=== PATIENT | male | born 1970 | race Caucasian/White ===

== ENCOUNTER 2020-03-22 05:00 | Emergency (ER) | payer MEDICARE, OTHER ==
[~2020-03-22] VITALS: Ht 198.1 cm; Wt 127.0 kg
[2020-03-22] MEDS ORDERED: AMLO5 PO (06:03)
[2020-03-22] MEDS ORDERED: Crestor20 MG PO (06:03)
[2020-03-22] MEDS ORDERED: PANT40 PO (06:03)
[2020-03-22] MEDS ORDERED: TICA90TA PO (06:04)
[2020-03-22] MEDS ORDERED: SITA100T2 PO (06:04)
[2020-03-22] MEDS ORDERED: Percocet 5-3251 EACH PO (06:07)
[2020-03-22] MEDS ORDERED: BASAGLAR K100 UNIT/1 SC (06:08)
[2020-03-22] MEDS ORDERED: Humalog100 UNIT/1 (06:09)
[2020-03-22] MEDS ORDERED: OZEMPIC0.25 MG/0. SC (06:09)
[2020-03-22] MEDS ORDERED: LOW DOSE ASPIRI81 M1 PO (06:10)
[2020-03-22] MEDS ORDERED: ZOLP5 PO (06:10)
[2020-03-22] MEDS ORDERED: CITA20 PO (06:11)
[2020-03-22] MEDS ORDERED: Cymbalta20 MG PT (12:06)
[2020-03-22] MEDS ORDERED: OXYC1TAB11 PO (12:06)
[2020-03-22] MEDS ORDERED: GABA100 PO (12:06)
== END 2020-03-22 12:19 | disposition home or self-care (01) ==
LOC: ER 05:00
DX: G89.29 Other chronic pain (principal); F32.9 Major depressive disorder, single episode, unspecified; F41.9 Anxiety disorder, unspecified; Z79.899 Other long term (current) drug therapy
CPT/HCPCS: 82947; 99284; Q3014

== ENCOUNTER 2020-04-04 01:23 | Emergency (ER) | payer MEDICARE, OTHER ==
[~2020-04-04] VITALS: Ht 198.1 cm; Wt 131.1 kg
[~2020-04-04 01:23] MED LIST: AMLO5 PO; BASAGLAR K100 UNIT/1 SC; CITA20 PO; Crestor20 MG PO; Cymbalta20 MG PT; GABA100 PO; Humalog100 UNIT/1; LOW DOSE ASPIRI81 M1 PO; OXYC1TAB11 PO; OZEMPIC0.25 MG/0. SC; PANT40 PO; Percocet 5-3251 EACH PO; SITA100T2 PO; TICA90TA PO; ZOLP5 PO
[2020-04-04] MEDS ORDERED: IBUP800 PO (02:58)
[2020-04-04] MEDS ORDERED: Valium5 MG PO (02:58)
== END 2020-04-04 03:04 | disposition home or self-care (01) ==
LOC: ER 01:23
DX: M62.830 Muscle spasm of back (principal); Z79.4 Long term (current) use of insulin; Z79.82 Long term (current) use of aspirin; Z79.899 Other long term (current) drug therapy; F32.9 Major depressive disorder, single episode, unspecified
CPT/HCPCS: J1885; J3360

== ENCOUNTER → 2020-06-02 | Outpatient (CLI) | payer MEDICARE, OTHER ==
[~2020-06-02] MED LIST changes: +IBUP800 PO; +Valium5 MG PO
== END | disposition home or self-care (01) ==
LOC: LAB 17:23 → LAB SHORT 17:23
DX: E11.621 Type 2 diabetes mellitus with foot ulcer (principal); L97.509 Non-pressure chronic ulcer of other part of unspecified foot with unspecified severity; E11.69 Type 2 diabetes mellitus with other specified complication; M86.179 Other acute osteomyelitis, unspecified ankle and foot
CPT/HCPCS: 87070; 87075; 87077; 87147; 87186; 87205

== ENCOUNTER 2020-07-04 20:42 | Emergency (ER) | payer MEDICARE, OTHER ==
[~2020-07-04] VITALS: Ht 198.1 cm; Wt 129.3 kg
[2020-07-04 21:34] LABS: BASOPHILS ABSOLUTE AUTO 0.03 K/mm3 (0.00-0.23); BASOPHILS PERCENT AUTO 0 % (0-2); EOSINOPHILS ABSOLUTE AUTO 0.05 K/mm3 (0.00-0.68); EOSINOPHILS PERCENT AUTO 1 % (0-6); Hematocrit 38.2 % (37.0-53.0); Hemoglobin 12.4 g/dL (13.5-17.5); IMMATURE GRAN ABSOLUTE AUTO 0.02 K/mm3 (0.00-0.10); IMMATURE GRAN PERCENT AUTO 0 % (0-1); LYMPHOCYTES ABSOLUTE AUTO 1.02 K/mm3 (0.84-5.20); LYMPHOCYTES PERCENT AUTO 10 % (21-46); MONOCYTES ABSOLUTE AUTO 0.93 K/mm3 (0.16-1.47); MONOCYTES PERCENT AUTO 9 % (4-13); Mean Corpuscular HGB 26.2 pg (26.0-34.0); Mean Corpuscular HGB Conc 32.5 g/dL (31.5-36.5); Mean Corpuscular Volume 81 fL (80-100); Mean Platelet Volume 11.3 fL (9.1-12.4); NEUTROPHILS ABSOLUTE AUTO 8.48 K/mm3 (1.96-9.15); NEUTROPHILS PERCENT AUTO 81 % (41-73); Platelet Count 162 K/mm3 (150-400); RDW Coefficient Variation 14.6 % (11.7-14.2); Red Blood Cell Count 4.73 M/mm3 (4.30-5.90); White Blood Cell Count 10.53 K/mm3 (4.00-11.30)
[2020-07-04 21:53] LABS: Alanine Aminotransfer (ALT/SGP 22 U/L (12-78); Albumin, Blood 3.5 g/dL (3.4-5.0); Albumin/Globulin Ratio 0.9 (0.8-1.8); Alk Phos 109 U/L (50-136); Anion Gap 8 mmol/L (6-16); Aspartate Aminotrans (AST/SGOT 16 U/L (12-37); Bilirubin, Total 0.4 mg/dL (0.1-1.0); Blood Urea Nitrogen 18 mg/dL (8-24); Bun/Creatinine Ratio 14.5 (12.0-20.0); CO2, Blood 26 mmol/L (21-32); Calcium, Blood 9.1 mg/dL (8.5-10.1); Chloride, Blood 96 mmol/L (98-108); Creatinine, Blood 1.24 mg/dL (0.60-1.20); Glomerular Filtration Rate >60 (60-); Glucose, Blood 366 mg/dL (70-99); Potassium, Blood 3.7 mmol/L (3.5-5.5); Sodium, Blood 130 mmol/L (136-145); Total Protein, Blood 7.5 g/dL (6.4-8.2)
[2020-07-04] MEDS ORDERED: CEPH500 PO (22:02)
[2020-07-04] MEDS ORDERED: Bactrim Ds Tab1 EACH PO (22:02)
== END 2020-07-04 22:36 | disposition home or self-care (01) ==
LOC: ER 20:42
PROVIDERS: Emergency Medicine
DX: E11.621 Type 2 diabetes mellitus with foot ulcer (principal); L97.429 Non-pressure chronic ulcer of left heel and midfoot with unspecified severity; L03.031 Cellulitis of right toe; E11.40 Type 2 diabetes mellitus with diabetic neuropathy, unspecified; F32.9 Major depressive disorder, single episode, unspecified; L03.116 Cellulitis of left lower limb; Z79.4 Long term (current) use of insulin; Z79.899 Other long term (current) drug therapy; Z79.82 Long term (current) use of aspirin
CPT/HCPCS: 36415; 73630; 80053; 83605; 85025; 85651; 86140; 93005; 93010; 99283-25; A9270-GY

== ENCOUNTER 2020-08-01 09:12 | Emergency (ER) | payer MEDICARE, OTHER ==
[~2020-08-01] VITALS: Ht 198.1 cm; Wt 127.0 kg
[~2020-08-01 09:12] MED LIST changes: -SULTRIDS PO
[2020-08-01 11:01] LABS: BASOPHILS ABSOLUTE AUTO 0.04 K/mm3 (0.00-0.23); BASOPHILS PERCENT AUTO 0 % (0-2); EOSINOPHILS PERCENT AUTO 3 % (0-6); Hematocrit 37.4 % (37.0-53.0); Hemoglobin 12.2 g/dL (13.5-17.5); IMMATURE GRAN ABSOLUTE AUTO 0.04 K/mm3 (0.00-0.10); IMMATURE GRAN PERCENT AUTO 0 % (0-1); LYMPHOCYTES ABSOLUTE AUTO 1.56 K/mm3 (0.84-5.20); LYMPHOCYTES PERCENT AUTO 16 % (21-46); MONOCYTES ABSOLUTE AUTO 0.62 K/mm3 (0.16-1.47); MONOCYTES PERCENT AUTO 7 % (4-13); Mean Corpuscular HGB 26.3 pg (26.0-34.0); Mean Corpuscular HGB Conc 32.6 g/dL (31.5-36.5); Mean Corpuscular Volume 81 fL (80-100); Mean Platelet Volume 11.4 fL (9.1-12.4); NEUTROPHILS ABSOLUTE AUTO 7.04 K/mm3 (1.96-9.15); NEUTROPHILS PERCENT AUTO 73 % (41-73); Platelet Count 163 K/mm3 (150-400); RDW Coefficient Variation 13.8 % (11.7-14.2); RDW Standard Deviation 40.6 fL (35.1-46.3); Red Blood Cell Count 4.64 M/mm3 (4.30-5.90)
[2020-08-01 11:20] LABS: Alanine Aminotransfer (ALT/SGP 39 U/L (12-78); Albumin, Blood 3.4 g/dL (3.4-5.0); Albumin/Globulin Ratio 0.8 (0.8-1.8); Alk Phos 108 U/L (50-136); Anion Gap 7 mmol/L (6-16); Aspartate Aminotrans (AST/SGOT 28 U/L (12-37); Bilirubin, Total 0.4 mg/dL (0.1-1.0); Blood Urea Nitrogen 15 mg/dL (8-24); Bun/Creatinine Ratio 13.8 (12.0-20.0); CO2, Blood 27 mmol/L (21-32); Calcium, Blood 9.5 mg/dL (8.5-10.1); Chloride, Blood 103 mmol/L (98-108); Creatinine, Blood 1.09 mg/dL (0.60-1.20); Glomerular Filtration Rate >60 (60-); Glucose, Blood 188 mg/dL (70-99); Potassium, Blood 3.2 mmol/L (3.5-5.5); Sodium, Blood 137 mmol/L (136-145); Total Protein, Blood 7.4 g/dL (6.4-8.2)
[2020-08-01] MEDS ORDERED: CEPH500 PO (11:52)
[2020-08-01] MEDS ORDERED: SULTRIDS PO (11:52)
== END 2020-08-01 12:12 | disposition home or self-care (01) ==
LOC: ER 09:12
PROVIDERS: Emergency Medicine
DX: E11.621 Type 2 diabetes mellitus with foot ulcer (principal); L97.429 Non-pressure chronic ulcer of left heel and midfoot with unspecified severity; E11.622 Type 2 diabetes mellitus with other skin ulcer; L97.329 Non-pressure chronic ulcer of left ankle with unspecified severity; I25.2 Old myocardial infarction; F32.9 Major depressive disorder, single episode, unspecified; Z79.899 Other long term (current) drug therapy
CPT/HCPCS: 73630; 80053; 85025; 85651; 86140; 99283-25

== ENCOUNTER → 2020-08-01 | Outpatient (CLI) | payer MEDICARE, OTHER ==
[~2020-08-01] MED LIST changes: +Bactrim Ds Tab1 EACH PO; +CEPH500 PO; +SULTRIDS PO
== END | disposition home or self-care (01) ==
LOC: LAB SHORT 12:32 → LAB 12:32
DX: L97.422 Non-pressure chronic ulcer of left heel and midfoot with fat layer exposed (principal); L97.509 Non-pressure chronic ulcer of other part of unspecified foot with unspecified severity; L03.119 Cellulitis of unspecified part of limb; E08.43 Diabetes mellitus due to underlying condition with diabetic autonomic (poly)neuropathy; A42.1 Abdominal actinomycosis
CPT/HCPCS: 87015; 87116; 87206

== ENCOUNTER 2020-08-13 18:17 | Emergency (ER) | payer MEDICARE, OTHER ==
[~2020-08-13] VITALS: Ht 198.1 cm; Wt 127.9 kg
[~2020-08-13 18:17] MED LIST changes: +SULTRIDS PO
== END 2020-08-13 20:25 | disposition home or self-care (01) ==
LOC: ER 18:17
DX: F32.9 Major depressive disorder, single episode, unspecified (principal); E11.9 Type 2 diabetes mellitus without complications; I25.2 Old myocardial infarction; Z79.899 Other long term (current) drug therapy; Z88.8 Allergy status to other drugs, medicaments and biological substances; Z79.4 Long term (current) use of insulin; Z79.82 Long term (current) use of aspirin
CPT/HCPCS: 99284

== ENCOUNTER 2020-08-25 00:57 | Day surgery (SDC) | payer MEDICARE, OTHER | END 2020-08-25 23:43 | disposition home or self-care (01) | LOC: WOUND 00:57 | DX: E11.621 Type 2 diabetes mellitus with foot ulcer (principal); E11.42 Type 2 diabetes mellitus with diabetic polyneuropathy; E11.610 Type 2 diabetes mellitus with diabetic neuropathic arthropathy; L97.422 Non-pressure chronic ulcer of left heel and midfoot with fat layer exposed; L97.509 Non-pressure chronic ulcer of other part of unspecified foot with unspecified severity; I10 Essential (primary) hypertension; K21.9 Gastro-esophageal reflux disease without esophagitis; Z79.899 Other long term (current) drug therapy; Z88.8 Allergy status to other drugs, medicaments and biological substances; Z79.4 Long term (current) use of insulin; Z79.82 Long term (current) use of aspirin | CPT/HCPCS: G0463 ==

== ENCOUNTER 2020-09-01 00:31 | Day surgery (SDC) | payer MEDICARE, OTHER | END 2020-09-01 23:13 | disposition home or self-care (01) | LOC: WOUND 00:31 | DX: E11.621 Type 2 diabetes mellitus with foot ulcer (principal); E11.42 Type 2 diabetes mellitus with diabetic polyneuropathy; E11.610 Type 2 diabetes mellitus with diabetic neuropathic arthropathy; L97.422 Non-pressure chronic ulcer of left heel and midfoot with fat layer exposed; L97.509 Non-pressure chronic ulcer of other part of unspecified foot with unspecified severity; E11.59 Type 2 diabetes mellitus with other circulatory complications; I10 Essential (primary) hypertension; K21.9 Gastro-esophageal reflux disease without esophagitis; Z79.899 Other long term (current) drug therapy; Z79.4 Long term (current) use of insulin ==

== ENCOUNTER 2020-09-08 01:15 | Day surgery (SDC) | payer MEDICARE, OTHER | END 2020-09-08 23:06 | disposition home or self-care (01) | LOC: WOUND 01:15 | DX: E11.621 Type 2 diabetes mellitus with foot ulcer (principal); E11.42 Type 2 diabetes mellitus with diabetic polyneuropathy; E11.610 Type 2 diabetes mellitus with diabetic neuropathic arthropathy; L97.422 Non-pressure chronic ulcer of left heel and midfoot with fat layer exposed; L97.521 Non-pressure chronic ulcer of other part of left foot limited to breakdown of skin; E11.59 Type 2 diabetes mellitus with other circulatory complications; I10 Essential (primary) hypertension; Z79.4 Long term (current) use of insulin; Z79.899 Other long term (current) drug therapy ==

== ENCOUNTER 2020-09-22 01:30 | Day surgery (SDC) | payer MEDICARE, OTHER | END 2020-09-22 22:43 | disposition home or self-care (01) | LOC: WOUND 01:30 | DX: E11.621 Type 2 diabetes mellitus with foot ulcer (principal); E11.42 Type 2 diabetes mellitus with diabetic polyneuropathy; E11.610 Type 2 diabetes mellitus with diabetic neuropathic arthropathy; L97.422 Non-pressure chronic ulcer of left heel and midfoot with fat layer exposed; L97.521 Non-pressure chronic ulcer of other part of left foot limited to breakdown of skin; E11.59 Type 2 diabetes mellitus with other circulatory complications; I10 Essential (primary) hypertension; Z79.899 Other long term (current) drug therapy; Z79.4 Long term (current) use of insulin ==

== ENCOUNTER 2020-09-29 00:30 | Day surgery (SDC) | payer MEDICARE, OTHER | END 2020-09-29 22:50 | disposition home or self-care (01) | LOC: WOUND 00:30 | DX: E11.621 Type 2 diabetes mellitus with foot ulcer (principal); E11.42 Type 2 diabetes mellitus with diabetic polyneuropathy; E11.610 Type 2 diabetes mellitus with diabetic neuropathic arthropathy; L97.422 Non-pressure chronic ulcer of left heel and midfoot with fat layer exposed; L97.521 Non-pressure chronic ulcer of other part of left foot limited to breakdown of skin; E11.59 Type 2 diabetes mellitus with other circulatory complications; I10 Essential (primary) hypertension; Z79.899 Other long term (current) drug therapy; Z79.4 Long term (current) use of insulin; Z79.82 Long term (current) use of aspirin | CPT/HCPCS: G0463 ==

== ENCOUNTER 2020-10-13 00:20 | Day surgery (SDC) | payer MEDICARE, OTHER | END 2020-10-13 23:39 | disposition home or self-care (01) | LOC: WOUND 00:20 | DX: E11.621 Type 2 diabetes mellitus with foot ulcer (principal); E11.42 Type 2 diabetes mellitus with diabetic polyneuropathy; E11.610 Type 2 diabetes mellitus with diabetic neuropathic arthropathy; L97.422 Non-pressure chronic ulcer of left heel and midfoot with fat layer exposed; L97.521 Non-pressure chronic ulcer of other part of left foot limited to breakdown of skin; E11.59 Type 2 diabetes mellitus with other circulatory complications; I10 Essential (primary) hypertension; Z79.4 Long term (current) use of insulin; Z79.899 Other long term (current) drug therapy | CPT/HCPCS: G0463 ==

== ENCOUNTER 2021-01-15 15:50 | Emergency (ER) | payer MEDICARE, OTHER ==
[~2021-01-15] VITALS: Ht 198.1 cm; Wt 131.5 kg
[2021-01-15 16:29] LABS: BASOPHILS ABSOLUTE AUTO 0.04 K/mm3 (0.00-0.23); BASOPHILS PERCENT AUTO 0 % (0-2); EOSINOPHILS ABSOLUTE AUTO 0.51 K/mm3 (0.00-0.68); EOSINOPHILS PERCENT AUTO 5 % (0-6); Hematocrit 38.1 % (37.0-53.0); Hemoglobin 12.9 g/dL (13.5-17.5); IMMATURE GRAN ABSOLUTE AUTO 0.04 K/mm3 (0.00-0.10); IMMATURE GRAN PERCENT AUTO 0 % (0-1); LYMPHOCYTES ABSOLUTE AUTO 1.46 K/mm3 (0.84-5.20); LYMPHOCYTES PERCENT AUTO 13 % (21-46); MONOCYTES ABSOLUTE AUTO 0.61 K/mm3 (0.16-1.47); MONOCYTES PERCENT AUTO 6 % (4-13); Mean Corpuscular HGB 25.9 pg (26.0-34.0); Mean Corpuscular HGB Conc 33.9 g/dL (31.5-36.5); Mean Corpuscular Volume 76 fL (80-100); Mean Platelet Volume 11.7 fL (9.1-12.4); NEUTROPHILS ABSOLUTE AUTO 8.53 K/mm3 (1.96-9.15); NEUTROPHILS PERCENT AUTO 76 % (41-73); Platelet Count 161 K/mm3 (150-400); RDW Coefficient Variation 13.6 % (11.7-14.2); RDW Standard Deviation 37.8 fL (35.1-46.3); Red Blood Cell Count 4.99 M/mm3 (4.30-5.90); White Blood Cell Count 11.19 K/mm3 (4.00-11.30)
[2021-01-15 16:58] LABS: Alanine Aminotransfer (ALT/SGP 30 U/L (12-78); Albumin, Blood 3.3 g/dL (3.4-5.0); Albumin/Globulin Ratio 0.8 (0.8-1.8); Alk Phos 116 U/L (50-136); Anion Gap 7 mmol/L (6-16); Aspartate Aminotrans (AST/SGOT 28 U/L (12-37); Bilirubin, Total 0.5 mg/dL (0.1-1.0); Blood Urea Nitrogen 21 mg/dL (8-24); Bun/Creatinine Ratio 15.8 (12.0-20.0); CO2, Blood 25 mmol/L (21-32); Calcium, Blood 9.1 mg/dL (8.5-10.1); Chloride, Blood 99 mmol/L (98-108); Creatinine, Blood 1.33 mg/dL (0.60-1.20); Globulin, Blood 4.1 g/dL (2.2-4.0); Glomerular Filtration Rate >60 (60-); Glucose, Blood 411 mg/dL (70-99); Potassium, Blood 3.8 mmol/L (3.5-5.5); Sodium, Blood 131 mmol/L (136-145); Total Protein, Blood 7.4 g/dL (6.4-8.2); Troponin I <0.015 ng/mL (0.000-0.040)
[2021-01-15] MEDS ORDERED: METO25 PO (17:20)
[2021-01-15] MEDS ORDERED: HYDRA25 PO (17:20)
[2021-01-15] MEDS ORDERED: FISH OIL 1,2001 EAC1 PO (17:21)
[2021-01-15] MEDS ORDERED: CENTRUM SILVER1 EAC2 PO (17:22)
[2021-01-15] MEDS ORDERED: THERA-D2000 UNIT PO (17:22)
[2021-01-15] MEDS ORDERED: PANT20 PO (19:23)
[2021-01-15] MEDS ORDERED: METOPROLOL SUCC25 MG PO (19:23)
[2021-01-15] MEDS ORDERED: HYDCHL25 PO (19:24)
[2021-01-15] MEDS ORDERED: INSULIN LI100 UNIT/6 SC (19:24)
[2021-01-15] MEDS ORDERED: CYMBALTA20 M2 PO (19:24)
[2021-01-15] MEDS ORDERED: SITA100T2 PO (19:26)
[2021-01-15] MEDS ORDERED: OXYCODONE-ACET1 EAC2 PO (19:26)
[2021-01-15] MEDS ORDERED: LEVO750 PO ×2 (20:18→20:21)
[2021-02-26] MEDS ORDERED: Crestor20 MG PO (14:43)
[2021-02-26] MEDS ORDERED: Aspirin EC81 MG PO (14:43)
[2021-02-26] MEDS ORDERED: AMLO5 PO (14:43)
[2021-02-26] MEDS ORDERED: PANT40 PO (14:43)
[2021-02-26] MEDS ORDERED: TICA90TA PO (14:44)
[2021-02-26] MEDS ORDERED: METO25ER PO (14:44)
[2021-02-26] MEDS ORDERED: VITAMIN D325 MC3 PO (14:44)
[2021-02-26] MEDS ORDERED: SITA100T2 PO (14:44)
[2021-02-26] MEDS ORDERED: OMEGA-3 2100 S1 EACH PO (14:45)
[2021-02-26] MEDS ORDERED: BASAGLAR K100 UNIT/1 SC (14:45)
[2021-02-26] MEDS ORDERED: OZEMPIC0.25 MG/0. SC (14:46)
[2021-02-26] MEDS ORDERED: CITALOPRAM HBR10 MG PO (14:47)
[2021-02-26] MEDS ORDERED: HUMALOG KW100 UNIT/1 (14:47)
[2021-02-26] MEDS ORDERED: KETO15TC (14:48)
[2021-02-26] MEDS ORDERED: NARCAN4 M1 (14:48)
[2021-02-26] MEDS ORDERED: HYDCHL12.5 PO (14:48)
[2021-02-26] MEDS ORDERED: PERCOCET 10-321 EAC1 PO (14:48)
== END 2021-01-15 20:27 | disposition home or self-care (01) ==
LOC: ER 15:50
PROVIDERS: Emergency Medicine
DX: M86.9 Osteomyelitis, unspecified (principal); E11.9 Type 2 diabetes mellitus without complications; I25.2 Old myocardial infarction; Z88.8 Allergy status to other drugs, medicaments and biological substances; Z79.899 Other long term (current) drug therapy; Z79.82 Long term (current) use of aspirin
CPT/HCPCS: 36415; 71045; 73630; 80053; 83605; 84484; 85025; 85651; 86140; 87040; 87070; 87075; 87077; 87186; 87205; 93005; 93010; 96374; 99284-25; A9270; J2405

== ENCOUNTER → 2021-02-02 | Outpatient (CLI) | payer MEDICARE, OTHER ==
[~2021-02-02] MED LIST changes: +CENTRUM SILVER1 EAC2 PO; +CYMBALTA20 M2 PO; +FISH OIL 1,2001 EAC1 PO; +HYDCHL25 PO; +HYDRA25 PO; +INSULIN LI100 UNIT/6 SC; +LEVO750 PO; +METO25 PO; +METOPROLOL SUCC25 MG PO; +OXYCODONE-ACET1 EAC2 PO; +PANT20 PO; +THERA-D2000 UNIT PO
== END | disposition home or self-care (01) ==
LOC: LAB SHORT 07:52
DX: M86.9 Osteomyelitis, unspecified (principal); L03.032 Cellulitis of left toe
CPT/HCPCS: 88305; 88311

== ENCOUNTER 2021-02-28 13:34 | Emergency (ER) | payer MEDICARE, OTHER ==
[~2021-02-28] VITALS: Ht 198.1 cm; Wt 132.0 kg
[~2021-02-28 13:34] MED LIST changes: +Aspirin EC81 MG PO; +CITALOPRAM HBR10 MG PO; +HUMALOG KW100 UNIT/1; +HYDCHL12.5 PO; +KETO15TC; +METO25ER PO; +NARCAN4 M1; +OMEGA-3 2100 S1 EACH PO; +PERCOCET 10-321 EAC1 PO; +VITAMIN D325 MC3 PO
[2021-02-28 13:59] LABS: BASOPHILS ABSOLUTE AUTO 0.04 K/mm3 (0.00-0.23); BASOPHILS PERCENT AUTO 0 % (0-2); EOSINOPHILS ABSOLUTE AUTO 0.27 K/mm3 (0.00-0.68); EOSINOPHILS PERCENT AUTO 2 % (0-6); Hematocrit 38.2 % (37.0-53.0); Hemoglobin 12.8 g/dL (13.5-17.5); IMMATURE GRAN ABSOLUTE AUTO 0.04 K/mm3 (0.00-0.10); IMMATURE GRAN PERCENT AUTO 0 % (0-1); LYMPHOCYTES ABSOLUTE AUTO 1.05 K/mm3 (0.84-5.20); LYMPHOCYTES PERCENT AUTO 9 % (21-46); MONOCYTES ABSOLUTE AUTO 0.81 K/mm3 (0.16-1.47); MONOCYTES PERCENT AUTO 7 % (4-13); Mean Corpuscular HGB 25.7 pg (26.0-34.0); Mean Corpuscular HGB Conc 33.5 g/dL (31.5-36.5); Mean Corpuscular Volume 77 fL (80-100); Mean Platelet Volume 11.2 fL (9.1-12.4); NEUTROPHILS ABSOLUTE AUTO 9.77 K/mm3 (1.96-9.15); NEUTROPHILS PERCENT AUTO 82 % (41-73); Platelet Count 189 K/mm3 (150-400); RDW Coefficient Variation 13.4 % (11.7-14.2); RDW Standard Deviation 37.2 fL (35.1-46.3); Red Blood Cell Count 4.99 M/mm3 (4.30-5.90); White Blood Cell Count 11.98 K/mm3 (4.00-11.30)
[2021-02-28 14:19] LABS: Albumin/Globulin Ratio 0.6 (0.8-1.8); Bilirubin, Total 0.6 mg/dL (0.1-1.0); Bun/Creatinine Ratio 14.7 (12.0-20.0); Calcium, Blood 8.9 mg/dL (8.5-10.1); Creatinine, Blood 1.5 mg/dL (0.60-1.20); Globulin, Blood 4.7 g/dL (2.2-4.0); Potassium, Blood 3.7 mmol/L (3.5-5.5); Total Protein, Blood 7.7 g/dL (6.4-8.2)
[2021-02-28] MEDS ORDERED: AMOCLA875 PO (15:36)
== END 2021-02-28 15:52 | disposition home or self-care (01) ==
LOC: ER 13:34
PROVIDERS: Physician Assistant
DX: L03.116 Cellulitis of left lower limb (principal); Z88.8 Allergy status to other drugs, medicaments and biological substances; Z79.899 Other long term (current) drug therapy
CPT/HCPCS: 36415; 73630; 80053; 85025; 99283-25

== ENCOUNTER 2021-03-02 07:17 | Inpatient (IN) | payer MEDICARE, OTHER ==
[~2021-03-02] VITALS: Ht 198.1 cm; Wt 135.7 kg
[~2021-03-02 07:17] MED LIST changes: +AMOCLA875 PO
[2021-03-02 08:21] LABS: BASOPHILS ABSOLUTE AUTO 0.03 K/mm3 (0.00-0.23); BASOPHILS PERCENT AUTO 0 % (0-2); EOSINOPHILS PERCENT AUTO 0 % (0-6); Hematocrit 35.4 % (37.0-53.0); Hemoglobin 11.8 g/dL (13.5-17.5); IMMATURE GRAN ABSOLUTE AUTO 0.02 K/mm3 (0.00-0.10); IMMATURE GRAN PERCENT AUTO 0 % (0-1); LYMPHOCYTES ABSOLUTE AUTO 0.54 K/mm3 (0.84-5.20); LYMPHOCYTES PERCENT AUTO 8 % (21-46); MONOCYTES ABSOLUTE AUTO 0.45 K/mm3 (0.16-1.47); MONOCYTES PERCENT AUTO 7 % (4-13); Mean Corpuscular HGB 25.5 pg (26.0-34.0); Mean Corpuscular HGB Conc 33.3 g/dL (31.5-36.5); Mean Corpuscular Volume 77 fL (80-100); Mean Platelet Volume 11.2 fL (9.1-12.4); NEUTROPHILS ABSOLUTE AUTO 5.81 K/mm3 (1.96-9.15); NEUTROPHILS PERCENT AUTO 85 % (41-73); Platelet Count 155 K/mm3 (150-400); RDW Coefficient Variation 13.5 % (11.7-14.2); RDW Standard Deviation 37.2 fL (35.1-46.3); Red Blood Cell Count 4.62 M/mm3 (4.30-5.90); White Blood Cell Count 6.85 K/mm3 (4.00-11.30)
[2021-03-02 08:39] LABS: Albumin, Blood 2.5 g/dL (3.4-5.0); Albumin/Globulin Ratio 0.6 (0.8-1.8); Bilirubin, Total 0.5 mg/dL (0.1-1.0); Bun/Creatinine Ratio 12.4 (12.0-20.0); Calcium, Blood 8.4 mg/dL (8.5-10.1); Creatinine, Blood 1.78 mg/dL (0.60-1.20); Globulin, Blood 4.4 g/dL (2.2-4.0); Potassium, Blood 3.5 mmol/L (3.5-5.5); Total Protein, Blood 6.9 g/dL (6.4-8.2)
[2021-03-02] MEDS ORDERED: BUPRENORPHINE1 EAC7 TD (08:42)
[2021-03-02 09:17] LABS: pH Blood Venous 7.39 (7.34-7.37)
[2021-03-02 09:18] LABS: Base Excess Venous 3.7 mmol/L; PCO2 Venous 47.1 mmHg (38-42)
--- NOTE | 2021-03-02 19:54 | NUR ---
SHIFT SUMMARY/ADMISSION NOTE PT AXOx4. PLEASANT AND COOPERATIVE WITH CARE. TRANSFERRED FROM ED AT APPROX 1115. PT C/O PAIN IN LLE. MEDICATED PER EMAR. ADMISSION COMPLETE. DR CLAIRE CONSULTED. WILL PLAN FOR SURGICAL INTERVENTION OF L FOOT ABCESS TOMORROW. PT NPO AFTER MIDNIGHT. NIGHT NURSE NOTIFIED. BED REST AT THIS TIME. CALLS APPROPRIATELY. IN ROOM TODAY, AND UPDATED ON PLAN OF CARE. VITALS REVIEWED. PT DENIES ANY NEEDS AT THIS TIME. CALL LIGHT IN REACH.
--- NOTE | 2021-03-02 20:16 | NUR ---
PT IS FEBRILE AT THIS TIME. PT STATES MUSCLE ACHE, DENIES CHILLS. ICE PACK APPLIED AROUND NECK, ELECTRIC FAN WELL ICE WATER PROVIDED. PT ENCOURAGE TO DRINK FLUIDS. WILL RE-ASSESS.
--- NOTE | 2021-03-03 03:58 | NUR ---
ALL AROUND GEAR MACHINE OPERATOR SUMMARY PT A/O X4. MEDICATED FOR PAIN X2 TONIGHT FOR L FOOT, PAIN NOT WELL CONTROLLED. MEDICATED ONCE FOR NAUSEA OVERNIGHT. DRESSING ON L FOOT IS C.D.I. CONTINUES TO BE ON RESTREST. NPO SINCE MIDNIGHT FOR PROCEDURE THIS AM. CONTINUES TO BE ON 2L O2 MAINTAINING GOOD 02 SATS. CALL LIGHT WITHIN REACH. WILL CONTINUE TO MONITOR.
[2021-03-03 03:59] LABS: BASOPHILS ABSOLUTE AUTO 0.02 K/mm3 (0.00-0.23); BASOPHILS PERCENT AUTO 0 % (0-2); EOSINOPHILS ABSOLUTE AUTO 0.04 K/mm3 (0.00-0.68); EOSINOPHILS PERCENT AUTO 1 % (0-6); Hemoglobin 10.3 g/dL (13.5-17.5); IMMATURE GRAN ABSOLUTE AUTO 0.01 K/mm3 (0.00-0.10); IMMATURE GRAN PERCENT AUTO 0 % (0-1); LYMPHOCYTES ABSOLUTE AUTO 0.69 K/mm3 (0.84-5.20); LYMPHOCYTES PERCENT AUTO 15 % (21-46); MONOCYTES ABSOLUTE AUTO 0.51 K/mm3 (0.16-1.47); MONOCYTES PERCENT AUTO 11 % (4-13); Mean Corpuscular HGB 25.3 pg (26.0-34.0); Mean Corpuscular HGB Conc 33.2 g/dL (31.5-36.5); Mean Corpuscular Volume 76 fL (80-100); Mean Platelet Volume 11.6 fL (9.1-12.4); NEUTROPHILS ABSOLUTE AUTO 3.43 K/mm3 (1.96-9.15); NEUTROPHILS PERCENT AUTO 73 % (41-73); Platelet Count 136 K/mm3 (150-400); RDW Coefficient Variation 13.6 % (11.7-14.2); RDW Standard Deviation 37.8 fL (35.1-46.3); Red Blood Cell Count 4.07 M/mm3 (4.30-5.90)
[2021-03-03 04:19] LABS: Albumin/Globulin Ratio 0.6 (0.8-1.8); Bilirubin, Total 0.3 mg/dL (0.1-1.0); Bun/Creatinine Ratio 9.7 (12.0-20.0); Calcium, Blood 7.8 mg/dL (8.5-10.1); Creatinine, Blood 1.55 mg/dL (0.60-1.20); Globulin, Blood 3.6 g/dL (2.2-4.0); Potassium, Blood 3.3 mmol/L (3.5-5.5); Total Protein, Blood 5.6 g/dL (6.4-8.2)
[2021-03-03 05:43] LABS: SARS-Cov-2 (COVID-19) PCR, MMC NEGATIVE (NEGATIVE)
--- NOTE | 2021-03-03 15:49 | NUR ---
ADMIT: 03/02/21 DISCHARGE: DX: abscess/cellulitis Left foot CC: kwilcox JOB CALL: RESIDENCE: Home with spouse CAREGIVER: SHELDON VELASQUEZ (SPOUSE) DX: CKD-stage 3, CAD, HTN, DM-stype 2, see lsit DME: none CCM: none HOME HEALTH: none SUMMARY: Admit: 03/02/21 03/03/21- per chart review with Dr. Gambino, there is no plan for d/c at this time. Referral was placed for podiatry to consult for surgery. Per [facility] chart, pt is scheduled for incision and drainage. -mirthaw
--- NOTE | 2021-03-03 18:17 | NUR ---
TO [facility] FROM ROOM 363. PT REPORTS NPO SINCE MIDNIGHT. History, Chart, Medications and Allergies reviewed before start of procedure. Lungs clear T/O to Auscultation. JEWELRY REFUSAL SIGNED, EAR PLUGS TAPED. CHEM BG 197.
--- NOTE | 2021-03-03 18:50 | NUR ---
03/03/211849 Janett Sigala PT ON SCHEDULED ABX.
--- NOTE | 2021-03-03 19:34 | NUR ---
SHIFT SUMMARY. PATIENT AxOx4. COOPERATIVE WITH CARE. PT C/O PAIN IN L KNEE, LA FEET, AND BACK T/O THE DAY. MEDICATED PER EMAR. ISO CONTACT PRECAUTIONS FOR HX MRSA. POSITIVE BLOOD CULTURES BACK TODAY. PT NPO AND BEDREST WAITING FOR SURGERY OF ABCSESS ON L FOOT. PICTURES IN CHART. WOUND CARE DONE TODAY. PT GIVEN FLUIDS, POTASSIUM, AND IV ABX TODAY. VITALS REVIEWED. PT PICKED UP FOR SURGERY AROUND 1800. DENIES ANY NEEDS PRIOR TO LEAVING. , SHELDON WAITING IN ROOM WHILE PATIENT IS IN SURGERY. TRAY ORDERED FOR DINNER TO BE HELD FOR PT TO RETURN.
[2021-03-04 07:07] LABS: BASOPHILS ABSOLUTE AUTO 0.01 K/mm3 (0.00-0.23); BASOPHILS PERCENT AUTO 0 % (0-2); EOSINOPHILS PERCENT AUTO 0 % (0-6); Hematocrit 37.3 % (37.0-53.0); IMMATURE GRAN ABSOLUTE AUTO 0.02 K/mm3 (0.00-0.10); IMMATURE GRAN PERCENT AUTO 1 % (0-1); LYMPHOCYTES ABSOLUTE AUTO 0.43 K/mm3 (0.84-5.20); LYMPHOCYTES PERCENT AUTO 12 % (21-46); MONOCYTES ABSOLUTE AUTO 0.09 K/mm3 (0.16-1.47); MONOCYTES PERCENT AUTO 3 % (4-13); Mean Corpuscular HGB 25.1 pg (26.0-34.0); Mean Corpuscular HGB Conc 32.2 g/dL (31.5-36.5); Mean Corpuscular Volume 78 fL (80-100); Mean Platelet Volume 11.6 fL (9.1-12.4); NEUTROPHILS ABSOLUTE AUTO 2.98 K/mm3 (1.96-9.15); NEUTROPHILS PERCENT AUTO 84 % (41-73); Platelet Count 173 K/mm3 (150-400); RDW Coefficient Variation 13.9 % (11.7-14.2); RDW Standard Deviation 39.5 fL (35.1-46.3); Red Blood Cell Count 4.78 M/mm3 (4.30-5.90); White Blood Cell Count 3.53 K/mm3 (4.00-11.30)
--- NOTE | 2021-03-04 07:27 | NUR ---
A+O, RECOVERING WELL FROM SURGERY ON L FOOT, CALL LIGHT IN REACH, FOOT STILL BOTHERING HIM, RM AIR, ABX INFUSING IN NEW IV, RESTING AWAITING NEWS FROM
[2021-03-04 07:37] LABS: Bun/Creatinine Ratio 11.9 (12.0-20.0); Calcium, Blood 8.6 mg/dL (8.5-10.1); Creatinine, Blood 1.51 mg/dL (0.60-1.20); Potassium, Blood 4.6 mmol/L (3.5-5.5)
--- NOTE | 2021-03-04 08:45 | NUR ---
BLOOD GLUCOSE OF [address] ARRIAGA IN TO SEE PT AND AWARE, REPORTS WILL ADJUST DIABETIC MEDICATIONS.
[2021-03-04 10:52] LABS: Vancomycin, Trough 9.9 ug/mL (5.0-10.0)
--- NOTE | 2021-03-04 12:29 | NUR ---
PT BLOOD GLUCOSE AT LUNCH NOTED TO BE 443. PT RECEIVED 10 UNITS HUMALOG PER SLIDING SCALE. DR ARRIAGA NOTIFIED AND ADDITION 15 UNITS OF REGULAR INSULIN ORDERED X1 NOW.
--- NOTE | 2021-03-04 13:55 | NUR ---
03/04/21- per chart review with Dr. Gambino, pt's health is improving, results have come back as staph/sepsis. Pt is responding well to IV antibiotics. Plan is to potentially d/c pt home either Tuesday or Tuesday but he could potentially stay through the weekend. -sheila
--- NOTE | 2021-03-04 16:53 | NUR ---
SHIFT SUMMARY- PT A/OX4. PT UP TO BATHROOM INDEP. PT TOLERATING BEARING WEIGHT TO LEFT FOOT. PT MEDICATED X2 WITH OXYCODONE FOR MID BACK AND LEFT FOOT PAIN. PT REPORTS CHRONIC NEUROPATHY TO BILAT FEET. LS CLEAR, ON RA. DRESSING TO LEFT FOOT REMAINS C/D/I, ORDERS TO CHANGE DRESSING POD#2. BLOOD GLUCOSE HAS BEEN ELEVATED T/O THE DAY, INSULINS ADJUSTED AND HOME MED ORDERED, PT WAS GOING TO TRY AND SEE IF SOMEONE COULD BRING IN HIS HOME MEDICATION FOR TOMORROW. NO OTHER ACUTE CHANGES THIS SHIFT.
--- NOTE | 2021-03-04 17:38 | NUR ---
PT BLOOD GLUCOSE THIS EVENING 459. 15 UNITS HUMALOG GIVEN PER SLIDING SCALE. CALLED AND SPOKE TO DR JACKSON FOR AFTER HOURS. PER DR JACKSON OK FOR THE 15 UNITS AND PT WILL RECEIVE LONG ACTING AT HS PLUS SLIDING SCALE.
[2021-03-04 21:37] LABS: Vancomycin, Trough 19.8 ug/mL (5.0-10.0)
[2021-03-05 05:00] LABS: Bun/Creatinine Ratio 14.3 (12.0-20.0); Calcium, Blood 8.8 mg/dL (8.5-10.1); Creatinine, Blood 1.54 mg/dL (0.60-1.20)
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
--- NOTE | 2021-03-05 13:31 | NUR ---
03/05/21- per chart review with Dr. Gambino, pt is responding well the antibiotics. Podiatry is to see pt today and possible remove bandages. Dr. Gambino discussed with the pt his sepsis and course of treatment involving IV antibiotics. Dr. Gambino would like for the pt to stay in the hospital through the weekend, however if the pt decides that he would like to go home, an antibiotic regiment will be needed and pt may be required to go in daily for IV antibiotics either in the or Infusion center. Pt stated that he would like to think about this. The earliest that the pt could be d/c home is Tuesday. -sheila
--- NOTE | 2021-03-05 17:21 | NUR ---
SHIFT SUMMARY PATIENT ALERT AND ORIENTED THIS SHIFT. PATIENT INDEPENDENT IN THE ROOM. PATIENT STATES PAIN WITHIN ACCEPTABLE LEVELS THIS SHIFT. DRESSING CHANGED ON L FOOT WOUND PER ORDERS. NEW PICTURES ON CHART. PATIENT REMAINS ON IV ANTIBIOTICS. NO ACUTE CHANGES THIS SHIFT. PATIENT CURRENTLY SITTING UP IN BED WITH SPOUSE AT BEDSIDE.
--- NOTE | 2021-03-06 04:28 | NUR ---
SHIFT SUMMARY ASSUMED CARE OF PT AT 1900. PT IS A/OX4. INDEPEDENT IN ROOM. HEART SOUNDS REGULAR, LUNG SOUNDS CLEAR. SURGEON SAW PT AT SHIFT CHANGE AND SAID THAT THE WOUND LOOKED GOOD AND PT CAN BE DISCHARGED. DRESSING IS C/D/I. PT C/O PAIN IN HIS BACK THIS EVENING, MEDICATED PER EMAR. NO ACUTE EVENTS CALL LIGHT IN REACH, BED IN LOWEST POSITON.
[2021-03-06 05:21] LABS: Anion Gap 7 mmol/L (6-16); Blood Urea Nitrogen 23 mg/dL (8-24); Bun/Creatinine Ratio 17.6 (12.0-20.0); CO2, Blood 28 mmol/L (21-32); Calcium, Blood 8.9 mg/dL (8.5-10.1); Chloride, Blood 101 mmol/L (98-108); Creatinine, Blood 1.31 mg/dL (0.60-1.20); Glomerular Filtration Rate >60 (60-); Glucose, Blood 312 mg/dL (70-99); Potassium, Blood 4.2 mmol/L (3.5-5.5); Sodium, Blood 136 mmol/L (136-145)
[2021-03-06 09:32] LABS: Vancomycin, Trough 12.5 ug/mL (5.0-10.0)
--- NOTE | 2021-03-06 13:47 | NUR ---
STUDENT ASSESSMENT REVIEW I HAVE REVIEWED THE STUDENT'S ASSESSMENT, CONDUCTED MY OWN ASSESSMENT, AND I AGREE WITH THE STUDENT'S FINDINGS
--- NOTE | 2021-03-06 15:56 | NUR ---
03/06/21- PRE CHART REVIEW WITH DR. DAWKINS, PT HAS HAD LABS ORDERED YESTERDAY AND WILL NEED TO WAIT AT LEAST 48 HRS. BEFORE CAN DISCHARGE. ORDERS HAVE BEEN PLACED FOR PICC LINE FOR IV ANTIBIOTICS. IS A RN AND SHE WILL BE PROVIDING HIS TREATMENT AT HOME. PT WILL NEED TO GET MEDICATION FROM [facility]. HAVE ORDER FORM AND WILL PROVIDE ON PT'S CHART FOR DR. MOREIRA FILL OUT. [facility] WILL ALSO PROVIDE SUPPLIES NEEDED TO PROVIDE CARE IN THE HOME. WILL DISCUSS WITH PT AND . DR. DAWKINS WILL LOOK AT D/C PT ON TUESDAY. -WONW
--- NOTE | 2021-03-06 18:38 | NUR ---
Shift summary, The patient is A/OX4 to person, place time, and event. He has been compliant and cooperative with his care. He is independent in the room and has been up to bathroom multiple times today. The patient has had back and left leg pain controlled with medications per EMR. The patient is still on IV anibiotics. He is currently in his room resting and watching tv.
--- NOTE | 2021-03-07 06:03 | NUR ---
PT IS A/O, UP TO RESTROOM OR USING URINAL T/O SHIFT, MEDICATED FOR PAIN IN RIGHT FOOT PER EMAR. D/C HOME ON TUESDAY WITH ABX THERAPY. LEILA AC/HS.
--- NOTE | 2021-03-07 19:21 | NUR ---
SHIFT SUMMARY: NO ACUTE CHANGES TO REPORT THIS SHIFT. PT A&O; CALM AND COOPERATIVE WITH CARE. MEDICATED FOR BACK & L FOOT PAIN PER EMAR. PT INDEPENDENT IN ROOM. IV ABX CONTINUING. REPORT GIVEN TO ONCOMING RN.
--- NOTE | 2021-03-07 22:56 | NUR ---
PT FOOT DRESSING CHANGED: DRIED DRAINAGE NOTED ON PRIOR GAUZE UNDER MIGUEL A WRAP; PINK, BROWN AND SEROSANGUINOUS, NO NOTED ODOR. CLEANSED WITH SKINTEGRITY, PACKED WITH 1/2 GAUZE PACKING IN BALL OF FOOT INCISION, TOP TOE INCISION, AND SIDE OF FOOT INCISION. GAUZE 4X4 TO COVER FOLLOWED BY KERLIX AND MIGUEL A WRAP. PT TOLERATED WELL.
--- NOTE | 2021-03-08 05:56 | NUR ---
PT IS A/O, UP IND IN ROOM. SURGICAL LEFT FOOT DRESSING CHANGED AND REPACKED THIS SHIFT. PT MEDICATED FOR PAIN IN LEFT FOOT HOWEVER RIGHT FOOT AND BACK HAVE CHRONIC PAIN, CALL TO HOSPITALIST FOR EXTRA PAIN MEDICATION DUE TO PT NEED. PLANS TO D/C HOME ON TUESDAY ON ABX THERAPY IN WHICH PT TO MANAGE.
--- NOTE | 2021-03-08 19:43 | NUR ---
SHIFT SUMMARY: NO ACUTE EVENTS TO REPORT THIS SHIFT. PT A&O; CALM AND COOPERATIVE WITH CARE; INDEPENDENT IN ROOM. MEDICATED FOR L FOOT PAIN PER EMAR. IV ABX CONTINUING. REPORT GIVEN TO ONCOMING RN.
[2021-03-09 05:16] LABS: BASOPHILS ABSOLUTE AUTO 0.02 K/mm3 (0.00-0.23); BASOPHILS PERCENT AUTO 0 % (0-2); EOSINOPHILS ABSOLUTE AUTO 0.47 K/mm3 (0.00-0.68); EOSINOPHILS PERCENT AUTO 6 % (0-6); Hematocrit 37.6 % (37.0-53.0); Hemoglobin 11.9 g/dL (13.5-17.5); IMMATURE GRAN ABSOLUTE AUTO 0.05 K/mm3 (0.00-0.10); IMMATURE GRAN PERCENT AUTO 1 % (0-1); LYMPHOCYTES ABSOLUTE AUTO 1.89 K/mm3 (0.84-5.20); LYMPHOCYTES PERCENT AUTO 23 % (21-46); MONOCYTES ABSOLUTE AUTO 0.39 K/mm3 (0.16-1.47); MONOCYTES PERCENT AUTO 5 % (4-13); Mean Corpuscular HGB 25.1 pg (26.0-34.0); Mean Corpuscular HGB Conc 31.6 g/dL (31.5-36.5); Mean Corpuscular Volume 79 fL (80-100); Mean Platelet Volume 10.9 fL (9.1-12.4); NEUTROPHILS ABSOLUTE AUTO 5.54 K/mm3 (1.96-9.15); NEUTROPHILS PERCENT AUTO 66 % (41-73); Platelet Count 260 K/mm3 (150-400); RDW Standard Deviation 40.3 fL (35.1-46.3); Red Blood Cell Count 4.74 M/mm3 (4.30-5.90); White Blood Cell Count 8.36 K/mm3 (4.00-11.30)
[2021-03-09 05:43] LABS: Anion Gap 5 mmol/L (6-16); Blood Urea Nitrogen 18 mg/dL (8-24); Bun/Creatinine Ratio 14.6 (12.0-20.0); CO2, Blood 27 mmol/L (21-32); Calcium, Blood 9.2 mg/dL (8.5-10.1); Chloride, Blood 102 mmol/L (98-108); Creatinine, Blood 1.23 mg/dL (0.60-1.20); Glomerular Filtration Rate >60 (60-); Glucose, Blood 248 mg/dL (70-99); Potassium, Blood 4.1 mmol/L (3.5-5.5); Sodium, Blood 134 mmol/L (136-145)
--- NOTE | 2021-03-09 06:18 | NUR ---
PT IS A/O, DRESSING TO LEFT FOOT CDI. PT MEDICATED PER EMAR FOR CHRONIC PAIN IN BACK AND RIGHT FOOT. IND IN ROOM, D/C TODAY AFTER RECIEVING PICC LINE TO MANAGE HOME ABX.
--- NOTE | 2021-03-09 10:18 | NUR ---
03/09/21- PER CHART REVIEW WITH DR. GONZALES, DR. ARELLANO HAS BEEN CONTACTED TO CONSULT REGARDING WOUND AND ANTIBIOTIC TREATMENT. ONCE HIS NOTE IS AVAILABLE, WILL SEND ORDER FOR IV ABX AND SUPPLIES TO [facility]. PLAN FOR D/C IS MOVED TO [facility] TO ALLOW FOR CONSULTATION AND ORDERING OF MEDICATIONS. -FRANCHESKA
[2021-03-09] MEDS ORDERED: CEFAZOLIN2 GM/50 M3 IV (13:32)
--- NOTE | 2021-03-09 17:02 | NUR ---
SHIFT SUMMARY PATIENT ALERT AND ORIENTED THIS SHIFT. PATIENT INDEPENDENT IN THE ROOM. PATIENT REMAINS ON IV ANTIBIOTICS. PATIENT'S SPOUSE IN THE ROOM VISITING FOR MUCH OF THIS SHIFT. PATIENT WALKED IN THE HALLWAY MULTIPLE TIMES THIS SHIFT. WOUND DRESSINGS CHANGED THIS SHIFT. NO ACUTE CHANGES THIS SHIFT. PATIENT CURRENTLY SITTING UP IN BED WATCHING TELEVISION.
[2021-03-10 05:45] LABS: BASOPHILS ABSOLUTE AUTO 0.03 K/mm3 (0.00-0.23); BASOPHILS PERCENT AUTO 0 % (0-2); EOSINOPHILS ABSOLUTE AUTO 0.56 K/mm3 (0.00-0.68); EOSINOPHILS PERCENT AUTO 7 % (0-6); Hematocrit 37.6 % (37.0-53.0); Hemoglobin 12.1 g/dL (13.5-17.5); IMMATURE GRAN ABSOLUTE AUTO 0.05 K/mm3 (0.00-0.10); IMMATURE GRAN PERCENT AUTO 1 % (0-1); LYMPHOCYTES ABSOLUTE AUTO 2.09 K/mm3 (0.84-5.20); LYMPHOCYTES PERCENT AUTO 27 % (21-46); MONOCYTES ABSOLUTE AUTO 0.45 K/mm3 (0.16-1.47); MONOCYTES PERCENT AUTO 6 % (4-13); Mean Corpuscular HGB 25.3 pg (26.0-34.0); Mean Corpuscular HGB Conc 32.2 g/dL (31.5-36.5); Mean Corpuscular Volume 79 fL (80-100); Mean Platelet Volume 10.2 fL (9.1-12.4); NEUTROPHILS ABSOLUTE AUTO 4.49 K/mm3 (1.96-9.15); NEUTROPHILS PERCENT AUTO 59 % (41-73); Platelet Count 271 K/mm3 (150-400); RDW Coefficient Variation 14.2 % (11.7-14.2); RDW Standard Deviation 40.3 fL (35.1-46.3); Red Blood Cell Count 4.79 M/mm3 (4.30-5.90); White Blood Cell Count 7.67 K/mm3 (4.00-11.30)
--- NOTE | 2021-03-10 06:09 | NUR ---
PT IS A/O, IND IN ROOM, DRESSING TO LEFT FOOT CDI, RECENT TOE AMPUTATION AND I AND D. MEDICATED FOR ACUTE AND CHRONIC PAIN PER EMAR. PT TO GO HOME ON ABX TODAY AFTER MRI. TO MANAGE ANTIBIOTICS.
[2021-03-10 06:10] LABS: Alanine Aminotransfer (ALT/SGP 19 U/L (12-78); Albumin, Blood 2.6 g/dL (3.4-5.0); Albumin/Globulin Ratio 0.6 (0.8-1.8); Alk Phos 92 U/L (50-136); Anion Gap 3 mmol/L (6-16); Aspartate Aminotrans (AST/SGOT 17 U/L (12-37); Bilirubin, Total 0.3 mg/dL (0.1-1.0); Blood Urea Nitrogen 17 mg/dL (8-24); CO2, Blood 30 mmol/L (21-32); Calcium, Blood 9.1 mg/dL (8.5-10.1); Chloride, Blood 103 mmol/L (98-108); Creatinine, Blood 1.31 mg/dL (0.60-1.20); Glomerular Filtration Rate >60 (60-); Glucose, Blood 145 mg/dL (70-99); Potassium, Blood 3.9 mmol/L (3.5-5.5); Sodium, Blood 136 mmol/L (136-145); Total Protein, Blood 6.6 g/dL (6.4-8.2)
--- NOTE | 2021-03-10 11:11 | NUR ---
03/10/21- per chart review with Dr. Moreno, pt is stable to d/c home today. Dr. Kebede saw the pt yesterday for consultation. Dr. Kebede's recommendations is to have MRI of lumbar spine for pt's chronic low back pain. Cont. IV antibiotics for 6 weeks. Potentially could add rifampin since there is some bone involvement. He also recommended repeat x-ray of foot and inflammatory markers in 1 month and obtain CRP for his baseline. Was able to get the pt an appt with Castillo on 03/12/21 @ 4:20. Gave this information to pt., along with contact information. Also updated pt and that medication was shipped yesterday and will be at the home this afternoon.-sheila
--- NOTE | 2021-03-10 11:42 | NUR ---
DISCHARGE SUMMARY PATIENT DISCHARGED TO HOME WITH HOME HEALTH AND HOME IV ANTIBIOTICS. PICC LINE IN PLACE FOR HOME IV ANTIBIOTIC ADMINISTRATION. PATIENT ALERT AND ORIENTED. PATIENT HAS BEEN INDEPENDENT IN THE ROOM. WOUND DRESSING C/D/I, CHANGED YESTERDAY. PERIPHERAL IV REMOVED PRIAL TO DISCHARGE. PATIENT AND SPOUSE PROVIDED WITH DISCHARGE AND MEDICATION INSTRUCTIONS, STATE NO QUESTIONS AT THIS TIME. PATIENT BELONGINGS WITH PATIENT UPON DISCHARGE. PATIENT REFUSED WHEELCHAIR, STATES HE WILL WALK OUT.
--- NOTE | 2021-04-14 00:49 | NUR ---
REVIEWED PT'S INFORMATION FOR CURRENT ADMISSION.
== END 2021-03-10 11:11 | disposition home health service (06) | DRG 854 ==
LOC: ER 07:17 → MEDS 09:56 → ENPENDDIS 03-09 12:58 → MEDS 03-10 11:11
PROVIDERS: Family Medicine; Hospitalist; Pharmacist; Physician Assistant; ADMIT Family Medicine
PROC: 0KBW0ZZ Excision of Left Foot Muscle, Open Approach (ICD-10-PCS; 2021-03-03)
PROC: 02HV33Z Insertion of Infusion Device into Superior Vena Cava, Percutaneous Approach (ICD-10-PCS; principal; 2021-03-09)
DX: A41.01 Sepsis due to Methicillin susceptible Staphylococcus aureus (principal); L02.611 Cutaneous abscess of right foot; L03.116 Cellulitis of left lower limb; L02.612 Cutaneous abscess of left foot; I12.9 Hypertensive chronic kidney disease with stage 1 through stage 4 chronic kidney disease, or unspecified chronic kidney disease; N18.30 Chronic kidney disease, stage 3 unspecified; G47.33 Obstructive sleep apnea (adult) (pediatric); E86.9 Volume depletion, unspecified; Z20.822 Contact with and (suspected) exposure to COVID-19; I25.10 Atherosclerotic heart disease of native coronary artery without angina pectoris; E78.5 Hyperlipidemia, unspecified; L97.522 Non-pressure chronic ulcer of other part of left foot with fat layer exposed; F43.22 Adjustment disorder with anxiety; E66.9 Obesity, unspecified; M51.36 Other intervertebral disc degeneration, lumbar region; E11.42 Type 2 diabetes mellitus with diabetic polyneuropathy; E11.22 Type 2 diabetes mellitus with diabetic chronic kidney disease; E11.621 Type 2 diabetes mellitus with foot ulcer; E11.65 Type 2 diabetes mellitus with hyperglycemia; E11.610 Type 2 diabetes mellitus with diabetic neuropathic arthropathy; F32.9 Major depressive disorder, single episode, unspecified; G89.4 Chronic pain syndrome; I25.2 Old myocardial infarction; Z79.4 Long term (current) use of insulin; Z79.82 Long term (current) use of aspirin; Z79.899 Other long term (current) drug therapy; Z88.8 Allergy status to other drugs, medicaments and biological substances; Z98.890 Other specified postprocedural states; Z68.33 Body mass index [BMI] 33.0-33.9, adult
CPT/HCPCS: 36415; 36569; 71045; 73700; 80048; 80053; 80202; 82803; 82947; 83605; 83735; 84145; 85025; 85651; 86140; 87040; 87070; 87075; 87077; 87186; 87205; 93005; 93010; 93306; 96365; 96366; 96368; 96375; 99285-25; A9270; C1751; J0295; J0690; J1100; J1650; J1815; J2250; J2405; J2543; J2704; J2765; J3010; J3370; J3480; J7030; J7050; J7120; U0004

== ENCOUNTER 2021-03-15 21:39 | Inpatient (IN) | payer MEDICARE, OTHER ==
[~2021-03-15] VITALS: Ht 198.1 cm; Wt 129.9 kg
[~2021-03-15 21:39] MED LIST changes: +BUPRENORPHINE1 EAC7 TD; +CEFAZOLIN2 GM/50 M3 IV
[2021-03-15 22:12] LABS: BASOPHILS ABSOLUTE AUTO 0.07 K/mm3 (0.00-0.23); BASOPHILS PERCENT AUTO 1 % (0-2); EOSINOPHILS PERCENT AUTO 3 % (0-6); Hematocrit 39.3 % (37.0-53.0); Hemoglobin 12.2 g/dL (13.5-17.5); IMMATURE GRAN ABSOLUTE AUTO 0.02 K/mm3 (0.00-0.10); IMMATURE GRAN PERCENT AUTO 0 % (0-1); LYMPHOCYTES ABSOLUTE AUTO 2.42 K/mm3 (0.84-5.20); LYMPHOCYTES PERCENT AUTO 23 % (21-46); MONOCYTES ABSOLUTE AUTO 0.57 K/mm3 (0.16-1.47); MONOCYTES PERCENT AUTO 5 % (4-13); Mean Corpuscular Volume 81 fL (80-100); Mean Platelet Volume 10.7 fL (9.1-12.4); NEUTROPHILS ABSOLUTE AUTO 7.33 K/mm3 (1.96-9.15); NEUTROPHILS PERCENT AUTO 68 % (41-73); Platelet Count 275 K/mm3 (150-400); RDW Coefficient Variation 14.4 % (11.7-14.2); Red Blood Cell Count 4.88 M/mm3 (4.30-5.90); White Blood Cell Count 10.71 K/mm3 (4.00-11.30)
[2021-03-15 22:38] LABS: C-REACTIVE PROTEIN, EXT RANGE 6.89 mg/dL (0.000-0.300)
[2021-03-16 02:29] LABS: Creatinine, Blood 1.22 mg/dL (0.60-1.20)
--- NOTE | 2021-03-16 03:25 | NUR ---
PT ADMITTED TO ROOM 211 AT ABOUT 0230. PT IS A/O X4, SBA UP TO BATHROOM. PT REP CHRONIC PAIN, CURRENTLY AT 07/03 R/T FOOT PAIN. PT MED WITH PERCOCET PER ORDERS. PICC LINE IN PLACE UPON ARRIVAL - PT STATES IT WAS PLACED 03/09. PHOTOS TAKEN OF L FOOT AND DRESSING CHANGED. PT ORIENTED TO ROOM AND CALL LIGHT. PT RESTING, DENIES FURTHER NEEDS AT THIS TIME.
--- NOTE | 2021-03-16 07:19 | NUR ---
LEFT MESSAGE WITH DR. CLAIRE OFFICE NOTIFYING OF PT'S ADMISSION
[2021-03-16 15:13] LABS: SARS-Cov-2 (COVID-19) PCR, MMC NEGATIVE (NEGATIVE)
--- NOTE | 2021-03-16 16:49 | NUR ---
CARE COORDINATION REFERRAL - ADMIT:03/16/21 DISCHARGE: DX: LEFT FOOT ABSCESS CC: KWILCOX ADMIT: 03/02/21 DISCHARGE: 03/10/21 JOB CALL: PT AT [phone] RESIDENCE: HOME WITH CAREGIVER: SHELDON VELASQUEZ (SPOUSE) HOME PHONE: DX: CKD-STAGE 3, DM, HTN, CAD, SEE LIST DME: NONE CCM: NONE HOME HEALTH: NONE SUMMARY: ADMIT: 03/16/21
--- NOTE | 2021-03-16 18:22 | NUR ---
SHIFT SUMMARY PATIENT ALERT AND ORIENTED THROUGHOUT SHIFT. INDEPENDENT IN ROOM. TOLERATING ADA DIET AND FLUIDS. INSULIN FOR BG COVERAGE. ABX RUNNING. LEFT FOOT WITH PACKING, GAUZE, AND MIGUEL A WRAP. CHANGED BY FRAME TABLE OPERATOR HELPER AT 1700. PLAN IS FOR I&D ON Tuesday03/18/21. WILL REPORT OFF TO INSTRUCTOR PROGRAMMABLE CONTROLLERS RN.
--- NOTE | 2021-03-17 04:23 | NUR ---
PT IN PAIN. MEDICATED SEVERAL TIMES PER EMAR. CALLED PHYSICIAN FOR MEDICATION CHANGE. L FOOT POD1. FOOT WOUND DRESSED WITH ABD PAD, COVERED WITH GAUZE, AND WRAPPED WITH COBAN AND COVERED WITH WEB ROLL. PT HAS CHRONIC BACK PAIN AND BILATERAL FOOT PAIN AND NEUROPATHY.
[2021-03-17 05:25] LABS: BASOPHILS ABSOLUTE AUTO 0.07 K/mm3 (0.00-0.23); BASOPHILS PERCENT AUTO 1 % (0-2); EOSINOPHILS ABSOLUTE AUTO 0.21 K/mm3 (0.00-0.68); EOSINOPHILS PERCENT AUTO 3 % (0-6); Hematocrit 36.2 % (37.0-53.0); Hemoglobin 11.4 g/dL (13.5-17.5); IMMATURE GRAN ABSOLUTE AUTO 0.01 K/mm3 (0.00-0.10); IMMATURE GRAN PERCENT AUTO 0 % (0-1); LYMPHOCYTES ABSOLUTE AUTO 1.64 K/mm3 (0.84-5.20); LYMPHOCYTES PERCENT AUTO 24 % (21-46); MONOCYTES ABSOLUTE AUTO 0.41 K/mm3 (0.16-1.47); MONOCYTES PERCENT AUTO 6 % (4-13); Mean Corpuscular HGB 25.1 pg (26.0-34.0); Mean Corpuscular HGB Conc 31.5 g/dL (31.5-36.5); Mean Corpuscular Volume 80 fL (80-100); Mean Platelet Volume 11.4 fL (9.1-12.4); NEUTROPHILS ABSOLUTE AUTO 4.37 K/mm3 (1.96-9.15); NEUTROPHILS PERCENT AUTO 65 % (41-73); Platelet Count 228 K/mm3 (150-400); RDW Coefficient Variation 14.1 % (11.7-14.2); RDW Standard Deviation 40.5 fL (35.1-46.3); Red Blood Cell Count 4.55 M/mm3 (4.30-5.90); White Blood Cell Count 6.71 K/mm3 (4.00-11.30)
[2021-03-17 05:47] LABS: Alanine Aminotransfer (ALT/SGP 13 U/L (12-78); Albumin, Blood 2.5 g/dL (3.4-5.0); Albumin/Globulin Ratio 0.6 (0.8-1.8); Alk Phos 94 U/L (50-136); Anion Gap 3 mmol/L (6-16); Aspartate Aminotrans (AST/SGOT 12 U/L (12-37); Bilirubin, Total 0.2 mg/dL (0.1-1.0); Blood Urea Nitrogen 13 mg/dL (8-24); Bun/Creatinine Ratio 11.4 (12.0-20.0); CO2, Blood 29 mmol/L (21-32); Calcium, Blood 8.9 mg/dL (8.5-10.1); Chloride, Blood 104 mmol/L (98-108); Creatinine, Blood 1.14 mg/dL (0.60-1.20); Globulin, Blood 4.5 g/dL (2.2-4.0); Glomerular Filtration Rate >60 (60-); Glucose, Blood 97 mg/dL (70-99); Potassium, Blood 3.9 mmol/L (3.5-5.5); Sodium, Blood 136 mmol/L (136-145)
[2021-03-17 11:15] LABS: Vancomycin, Trough 17.7 ug/mL (5.0-10.0)
--- NOTE | 2021-03-17 15:08 | NUR ---
CARE COORDINATION REFERRAL - ADMIT:03/16/21 DISCHARGE: DX: LEFT FOOT ABSCESS CC: KWILCOX ADMIT: 03/02/21 DISCHARGE: 03/10/21 JOB CALL: PT AT [phone] RESIDENCE: HOME WITH CAREGIVER: SHELDON VELASQUEZ (SPOUSE) HOME PHONE: DX: CKD-STAGE 3, DM, HTN, CAD, SEE LIST DME: NONE CCM: NONE HOME HEALTH: NONE SUMMARY: ADMIT: 03/16/21 03/17/21- PER CHART REVIEW WITH DR. MENDIOLA, PT IS SCHEDULED TO HAVE SURGERY WITH PODIATRY TOMORROW. NO PLAN FOR D/C AT THIS TIME. -FRANCHESKA
--- NOTE | 2021-03-17 18:10 | NUR ---
SHIFT SUMMARY PT IS A/O X4, VSS. POD 1 I&D L FOOT. GUAZE & MIGUEL A WRAP IN PLACE, C/D/I. PT HAS BEEN IND IN ROOM T/O SHIFT, VERY PLEASANT & COOPERATIVE. PAIN MANAGED PER EMAR, TOLERABLE AT 5/10. WILL CONTINUE TO MONITOR.
--- NOTE | 2021-03-18 04:22 | NUR ---
SHIFT SUMMARY SITTING UP ON THE SIDE OF THE BED WITH EYES OPEN. BOUNCING AND SHIFTING BODY TO ASSSIT WITH PAIN RELIEF. REFUSES OFFERS OF HEAT AND COLD THERAPY. AAO X3, RICHTER, FOLLOWS ALL COMMANDS. HAS RESTED WELL. PLEASANT AND COOPERATIVE WITH CARE. MEDICATED FOR PAIN MULTIPLE TIMES THIS SHIFT PER EMAR. HAS BEEN NPO SINCE [place] FOR OR TODAY. GIVEN ORAL CARE SETUP. DENIES FURTHER NEEDS OR WANTS AT THIS TIME. SAFETY MEASURES IN PLACE. WILL CONTINUE TO MONITOR AND GIVE HAND OFF TO ONCOMING SHIFT USING SBAR DURING BEDSIDE REPORT.
--- NOTE | 2021-03-18 14:02 | NUR ---
03/18/21- per chart review with Dr. Silva, pt is scheduled for surgery of foot today. Pt has shared that he is depressed and having marital problems. He would like resources for counseling. Reached out to [facility] at [place] for list of area resources to provide to pt. Was given resources. -sheila
--- NOTE | 2021-03-18 14:31 | NUR ---
PT TO DS VIA DEBBIE
--- NOTE | 2021-03-18 15:32 | NUR ---
Patient up to Ambulate independently. Gait steady. History, Chart, Medications and Allergies reviewed before start of procedure.Lungs clear T/O to Auscultation. Patient confirms NPO status and agrees with scheduled surgery. UNABLE TO USE PT PICC LINE AFTER FLUSHING SEVERAL TIMES IV CONTINUED TO NOT RUN TO GRAVITY. OKAY WITH MAE LOBO TO LEAVE PT CONTACTS AND TEETH IN TILL RECEIVED IN OR.
--- NOTE | 2021-03-18 17:40 | NUR ---
RETURNED TO ROOM FROM PACU S/P PARTIAL AMPUTATION OF TOES, L FOOT. PT ABLE TO MOVE HIMSELF FROM GURNEY TO BED W/ MINIMAL ASSISTANCE. HEART AND LUNG SOUNDS WNL, VSS, PAIN REPORTED TO BE TOLERABLE AT THIS TIME, DENIES NAUSEA. UNABLE TO VISUALIZE SURGICAL SITE D/T DRSG. GAUZE AND MIGUEL A WRAP IN PLACE, NO SHADOWING PRESENT ON GAUZE. SKIN AROUND DRSG IS P/W/D, W/ GOOD CAP REFILL. CALL LIGHT WITHIN REACH, WILL CONTINUE TO MONITOR.
--- NOTE | 2021-03-18 17:52 | NUR ---
SHIFT SUMMARY PT TO US FROM PACU AROUND 1530 S/P LAVH. X4 ABD LAP SITES W/ STERI STRIPS. SCANT RED DRNG PRESENT. VSS, HEART SOUNDS WNL, LUNGS CLEAR T/O. PAIN REPORTED TO BE TOLERABLE AT 2/10 IN LOWER ABD. TOLERATING REG DIET AT THIS TIME, NO NAUSEA. CHOWDARY IN PLACE, DRAINING CLEAR YELLOW URINE. K PAD IN PLACE TO BACK, TURNED OFF AT THIS TIME BUT PT REQUESTED FOR IT TO BE LEFT IN PLACE. PT REPORTS BEING VERY COMFORTABLE AND CONTENT AT THIS TIME. WILL CONTINUE TO MONITOR.
--- NOTE | 2021-03-19 04:42 | NUR ---
SHIFT SUMMARY POD#1 LEFT FOOT SURGERY. AAOX4. DISCOMFORT CONTROLLED WITH 10MG OXYCODONE Q4H + 2MG IV DILAUDID Q4H. NO NAUSEA/EMESIS. MIGUEL A WRAP TO LLE C/D/I. PT REPORTING N/T BLE AT BASELINE. PT MOVES WELL IN BED, REPOSITIONING W/O DIFFICULTY. GOOD PO INTAKE + URINE OUTPUT. PICC LINE FLUSHING WELL + IV ABX PER ORDERS. PT SEEMS TO BE RESTING WELL THIS AM WITH CALL LIGHT IN REACH.
--- NOTE | 2021-03-19 09:19 | NUR ---
03/19/21 0919 Janett Sigala VERIFICATIONS: EDIT CHART.
[2021-03-19 11:26] LABS: Vancomycin, Trough 18.3 ug/mL (5.0-10.0)
--- NOTE | 2021-03-19 17:14 | NUR ---
SUMMARY PT RESTING QUIETLY IN BED, INDEPENDENT IN THE ROOM, PLEASANT AND COOPERATIVE WITH CARE, MED PER EMAR FOR PAIN, PT IS POST OP DAY 1, DRESSING TO THE R FOOT HAS BEEN REINFORCED DUE TO DRAINAGE AFTER THE PT WAS UP IN THE ROOM, NO FURTHER BLEEDING OR DRAINAGE NOTED, VSS, WILL CONT TO MONITOR
--- NOTE | 2021-03-20 05:21 | NUR ---
SHIFT SUMMARY POD#2. AAOX4. DISCOMFORT CONTROLLED WITH 10 OXYCODONE Q4H + 2MG IV DILAUDID Q4H. NO NAUSEA/EMESIS. DRESSING TO LLE REINFORCED BY DAY SHIFT RN YESTARDAY, C/D/I T/O SHIFT. GOOD PO INTAKE + OUTPUT. IV ABX PER ORDERS. NO ACUTE CHANGES OVER NIGHT. PT RESTED INFREQUENTLY T/O NIGHT WITH CALL LIGHT IN REACH.
--- NOTE | 2021-03-20 15:49 | NUR ---
DRESSING ON FOOT CHANGED AT THIS TIME. 1/4 INCH PACKING PLACED IN OPENING ON BOTTOM OF FOOT. 1 INCH TAIL HANGING OUT. NON ADHERANT DRESSING OVER SUTURES COVERED WITH AND ABD. KERLEX ROLL AROUND EVERYTHING AND MIGUEL A WRAP TO HOLD IT ALL. PT DENIED PAIN DURING PROCEDURE AND TOLERATED WELL. SKIN APPEARED WHITISH AND SATURATED ON REMOVAL, MINIMAL OOZING OUT OF OPEN AREAS ONCE DRESSING REMOVED. USED STERILE SALINE TO LOOSEN DRIED BLOOD ADHERING TO FOOT.
--- NOTE | 2021-03-20 16:21 | NUR ---
SHIFT SUMMARY POD 2 TOE AMPUTATION AND DRAINAGE AAOX4, PAIN MANAGED PER EMAR, PT REPORTS CHRONIC PAIN THAT IS COMPLICATING HIS PAIN MANAGEMENT, STATES OVERALL TOLERABLE TODAY. R FOOT DRESSING CHANGED, THERE WAS NO NEW DRAINAGE ON REINFORCED AREA FROM NOC SHIFT. TOLERATING PO WELL, DENIES NAUSEA. VOIDING WELL. PLAN TO CONTINUE IV ABX AND TREAT PAIN.
--- NOTE | 2021-03-20 18:50 | NUR ---
Update 03/20/21: Pt. likely to D/C tomorrow. F/U needed with Dr. Thomas next week. JOB staff will schedule pt. for F/U visit with PCP at time of JOB call. If pt. agreeable, F/U with C was recommended or outpatient counseling. Pt. also needs MRI of back outpatient.
[2021-03-21 04:29] LABS: BASOPHILS ABSOLUTE AUTO 0.04 K/mm3 (0.00-0.23); BASOPHILS PERCENT AUTO 1 % (0-2); EOSINOPHILS ABSOLUTE AUTO 0.19 K/mm3 (0.00-0.68); EOSINOPHILS PERCENT AUTO 4 % (0-6); Hematocrit 33.7 % (37.0-53.0); Hemoglobin 10.8 g/dL (13.5-17.5); IMMATURE GRAN ABSOLUTE AUTO 0.01 K/mm3 (0.00-0.10); IMMATURE GRAN PERCENT AUTO 0 % (0-1); LYMPHOCYTES ABSOLUTE AUTO 1.96 K/mm3 (0.84-5.20); LYMPHOCYTES PERCENT AUTO 37 % (21-46); MONOCYTES ABSOLUTE AUTO 0.36 K/mm3 (0.16-1.47); MONOCYTES PERCENT AUTO 7 % (4-13); Mean Corpuscular HGB 25.4 pg (26.0-34.0); Mean Corpuscular Volume 79 fL (80-100); NEUTROPHILS ABSOLUTE AUTO 2.76 K/mm3 (1.96-9.15); NEUTROPHILS PERCENT AUTO 52 % (41-73); Platelet Count 169 K/mm3 (150-400); RDW Coefficient Variation 14.3 % (11.7-14.2); RDW Standard Deviation 40.8 fL (35.1-46.3); Red Blood Cell Count 4.26 M/mm3 (4.30-5.90); White Blood Cell Count 5.32 K/mm3 (4.00-11.30)
[2021-03-21 04:51] LABS: Anion Gap 3 mmol/L (6-16); Blood Urea Nitrogen 22 mg/dL (8-24); Bun/Creatinine Ratio 19.5 (12.0-20.0); CO2, Blood 30 mmol/L (21-32); Calcium, Blood 8.7 mg/dL (8.5-10.1); Chloride, Blood 101 mmol/L (98-108); Creatinine, Blood 1.13 mg/dL (0.60-1.20); Glomerular Filtration Rate >60 (60-); Glucose, Blood 255 mg/dL (70-99); Potassium, Blood 4.1 mmol/L (3.5-5.5); Sodium, Blood 134 mmol/L (136-145)
--- NOTE | 2021-03-21 05:56 | NUR ---
SHIFT SUMMARY: PT POD#3 FOR LEFT GREAT TOE EXCISION AND PARTIAL AMPUTATION OF SECOND TOE. MIGUEL A WRAP DRESSING C/D/I. PT C/O BURNING TO LEFT FOOT AND CHRONIC BACK PAIN. PT OFFERED K PAD FOR BACK AND EGG CRATE. PAIN BEING MANAGED WITH ORAL AND IV MEDS PER EMAR. PT INDEPENDENT IN ROOM. PT REMINDED OF NWB STATUS TO LEFT FOOT. PT VOIDING WELL IN URINAL. IV ABX INFUSING PER ORDERS. SALINE LOCKED IN BETWEEN INFUSIONS. EAGER TO TALK WITH DR REGARDING DISCHARGE PLAN.
--- NOTE | 2021-03-21 15:45 | NUR ---
SUMMARY: PT IS POD3 L TOES AMPUTATION. A/O X3, VSS. INDEP IN ROOM. SURGICAL SITE WNL, L FOOT DRESSING TO BE CHANGED TOMORROW, PER ORDER. PAIN APPEARS TO BE WELL MANAGED WITH OXYCODONE Q4 AND IV DILAUDID Q4. IV ABX GIVEN PER EMAR, OTHERWISE SALINE LOCKED. PT IS VOIDING AND EATING. PLAN IS FOR POSSIBLE DC HOME TOMORROW. NO ACUTE SAFETY CONCERNS. WILL REPORT TO SAMIA RN
--- NOTE | 2021-03-22 06:00 | NUR ---
SHIFT SUMMARY POD4 L GREAT TOE AMPUTATION W/ PATIAL 2ND TOE AMPUTATION, A/O X4, VSS, EATING, DRINKING, VOIDING, AMBULATING, PAIN MANAGED W/ 2MG DILAUDID Q4-5. NO ACUTE EVENTS THIS SHIFT, WILL CTM AND REPORT TO ONCOMING DAY RN.
[2021-03-22] MEDS ORDERED: ACET325 PO (10:56)
[2021-03-22] MEDS ORDERED: VISBIOME 112.51 EACH PO ×2 (10:57→10:59)
[2021-03-22] MEDS ORDERED: RIFA300 PO (11:08)
--- NOTE | 2021-03-22 11:42 | NUR ---
DISCHARGE SUMMARY PATIENT ALERT AND ORIENTED THROUGHOUT SHIFT. INDEPENDENT IN ROOM. CHANGED WOUND DRESSING THIS AM. DISCHARGE ORDERS OBATINED. DISCHARGE EDUCATION GIVEN ON WOUND CARE, FOLLOW UP, RX'S. HEPARIN FLUSHED CENTRAL LINE. PT LEFT UNIT AT 1130 VIA WHEELCHAIR FOR HOME.
--- NOTE | 2021-04-14 00:50 | NUR ---
REVIEWED PT'S INFORMATION FOR CURRENT ADMISSION.
== END 2021-03-22 11:34 | disposition home or self-care (01) | DRG 617 ==
LOC: ER 21:39 → SURS 03-16 01:18
PROVIDERS: Family Medicine; Physician Assistant; Podiatrist; ADMIT Internal Medicine
PROC: 0Y6S0Z1 Detachment at Left 2nd Toe, High, Open Approach (ICD-10-PCS; principal; 2021-03-18 15:15)
PROC: 0QBP0ZZ Excision of Left Metatarsal, Open Approach (ICD-10-PCS; 2021-03-18 15:15)
DX: E11.69 Type 2 diabetes mellitus with other specified complication (principal); L03.116 Cellulitis of left lower limb; L02.612 Cutaneous abscess of left foot; M86.172 Other acute osteomyelitis, left ankle and foot; M84.475A Pathological fracture, left foot, initial encounter for fracture; E11.628 Type 2 diabetes mellitus with other skin complications; E78.00 Pure hypercholesterolemia, unspecified; F32.9 Major depressive disorder, single episode, unspecified; I25.10 Atherosclerotic heart disease of native coronary artery without angina pectoris; G47.33 Obstructive sleep apnea (adult) (pediatric); I12.9 Hypertensive chronic kidney disease with stage 1 through stage 4 chronic kidney disease, or unspecified chronic kidney disease; N18.30 Chronic kidney disease, stage 3 unspecified; E11.65 Type 2 diabetes mellitus with hyperglycemia; E11.42 Type 2 diabetes mellitus with diabetic polyneuropathy; Z20.822 Contact with and (suspected) exposure to COVID-19; E11.621 Type 2 diabetes mellitus with foot ulcer; L97.524 Non-pressure chronic ulcer of other part of left foot with necrosis of bone; M51.36 Other intervertebral disc degeneration, lumbar region; E11.22 Type 2 diabetes mellitus with diabetic chronic kidney disease; E66.9 Obesity, unspecified; F43.9 Reaction to severe stress, unspecified; E78.5 Hyperlipidemia, unspecified; F41.9 Anxiety disorder, unspecified; G89.4 Chronic pain syndrome; I25.2 Old myocardial infarction; Z98.890 Other specified postprocedural states; Z88.8 Allergy status to other drugs, medicaments and biological substances; Z79.4 Long term (current) use of insulin; Z79.82 Long term (current) use of aspirin; Z79.899 Other long term (current) drug therapy; Z89.412 Acquired absence of left great toe; Z95.828 Presence of other vascular implants and grafts; Z68.33 Body mass index [BMI] 33.0-33.9, adult
CPT/HCPCS: 36415; 73630; 80048; 80053; 80202; 82565; 82947; 83036; 83605; 85025; 85651; 86140; 87040; 87070; 87071; 87075; 87205; 88305; 88311; 93971; 96365; 96366; 96368; 99284; A9270; J0690; J0692; J1100; J1170; J1642; J1650; J2185; J2250; J2405; J2704; J3010; J3370; J7040; J7050; J7120; U0004

== ENCOUNTER 2021-04-04 18:09 | Inpatient (IN) | payer MEDICARE, OTHER ==
[~2021-04-04] VITALS: Ht 198.1 cm; Wt 135.4 kg
[~2021-04-04 18:09] MED LIST changes: +ACET325 PO; +RIFA300 PO; +VISBIOME 112.51 EACH PO
[2021-04-04 20:17] LABS: BASOPHILS ABSOLUTE AUTO 0.05 K/mm3 (0.00-0.23); BASOPHILS PERCENT AUTO 1 % (0-2); EOSINOPHILS ABSOLUTE AUTO 0.36 K/mm3 (0.00-0.68); EOSINOPHILS PERCENT AUTO 4 % (0-6); Hematocrit 36.8 % (37.0-53.0); Hemoglobin 11.9 g/dL (13.5-17.5); IMMATURE GRAN ABSOLUTE AUTO 0.03 K/mm3 (0.00-0.10); IMMATURE GRAN PERCENT AUTO 0 % (0-1); LYMPHOCYTES ABSOLUTE AUTO 1.75 K/mm3 (0.84-5.20); LYMPHOCYTES PERCENT AUTO 22 % (21-46); MONOCYTES ABSOLUTE AUTO 0.52 K/mm3 (0.16-1.47); MONOCYTES PERCENT AUTO 6 % (4-13); Mean Corpuscular HGB 25.2 pg (26.0-34.0); Mean Corpuscular HGB Conc 32.3 g/dL (31.5-36.5); Mean Corpuscular Volume 78 fL (80-100); Mean Platelet Volume 11.1 fL (9.1-12.4); NEUTROPHILS ABSOLUTE AUTO 5.42 K/mm3 (1.96-9.15); NEUTROPHILS PERCENT AUTO 67 % (41-73); Platelet Count 197 K/mm3 (150-400); RDW Coefficient Variation 14.6 % (11.7-14.2); RDW Standard Deviation 41.2 fL (35.1-46.3); Red Blood Cell Count 4.73 M/mm3 (4.30-5.90); White Blood Cell Count 8.13 K/mm3 (4.00-11.30)
[2021-04-04 20:35] LABS: Alanine Aminotransfer (ALT/SGP 10 U/L (12-78); Albumin, Blood 2.9 g/dL (3.4-5.0); Albumin/Globulin Ratio 0.7 (0.8-1.8); Alk Phos 140 U/L (50-136); Anion Gap 7 mmol/L (6-16); Aspartate Aminotrans (AST/SGOT 12 U/L (12-37); Bilirubin, Total 0.2 mg/dL (0.1-1.0); Blood Urea Nitrogen 17 mg/dL (8-24); Bun/Creatinine Ratio 13.7 (12.0-20.0); CO2, Blood 27 mmol/L (21-32); Calcium, Blood 9.2 mg/dL (8.5-10.1); Chloride, Blood 99 mmol/L (98-108); Creatinine, Blood 1.24 mg/dL (0.60-1.20); Globulin, Blood 4.4 g/dL (2.2-4.0); Glomerular Filtration Rate >60 (60-); Glucose, Blood 360 mg/dL (70-99); Potassium, Blood 3.5 mmol/L (3.5-5.5); Sodium, Blood 133 mmol/L (136-145); Total Protein, Blood 7.3 g/dL (6.4-8.2)
[2021-04-04] MEDS ORDERED: PANT20 PO (21:13)
[2021-04-04] MEDS ORDERED: OXYCODONE-ACET1 EAC2 PO (21:14)
--- NOTE | 2021-04-05 02:51 | NUR ---
ADMIT NOTE HANDOFF RECEIVED FROM ER NURSE BELKYS. PT ARRIVED TO FLOOR VIA GURNEY. PERSONAL POSSESSIONS WITH PT. PT ORIENTED TO UNIT. IV FLUIDS AND IV ANTIBIOTICS ADMINISTERED ORDERED. PHOTOS TAKEN OF SURGICAL SITE ON LEFT FOOT AND NEW DRESSING PUT IN PLACE. CALL BUTTON WITHIN REACH.
--- NOTE | 2021-04-05 04:54 | NUR ---
SHIFT SUMMARY ADMITTED FOR LEFT FOOT INFECTION - POST OP, DAY 7. FULL CODE. PT HAD PROCEDURE REMOVING FIRST METATARSAL AND 2ND TOE 7 DAYS AGO - DUE TO OSTEOMYELITIS. PT ADMITTED FROM ER THIS SHIFT. PT HAS A PICC LINE IN PLACE SO THAT HE MAY RECEIVE IV ANTIBIOTICS AT HOME. PT HAS GEOLOGIST CHRONIC BACK PAIN. PT STATES THAT THE PO PAIN CONTROL IS INSUFFICIENT TO CONTROL HIS BACK PAIN. I DID INFORM HIM THAT HE IS NOT ADMITTED FOR BACK PAIN. IV ANTIBIOTICS ARE SCHEDULED, IV FLUIDS ARE INFUSING. WE WILL CALL CONSULT, DR GERBER - PODIATRY, WHEN THE OFFICE IS OPEN. PICTURES ARE IN CHART OF LEFT FOOT SURGICAL SITES, NEW BANDAGES APPLIED.
[2021-04-05 05:00] LABS: Hemoglobin 11.6 g/dL (13.5-17.5); Mean Corpuscular HGB 25.1 pg (26.0-34.0); Mean Corpuscular HGB Conc 32.2 g/dL (31.5-36.5); Mean Corpuscular Volume 78 fL (80-100); Platelet Count 195 K/mm3 (150-400); RDW Coefficient Variation 14.7 % (11.7-14.2); RDW Standard Deviation 41.2 fL (35.1-46.3); Red Blood Cell Count 4.63 M/mm3 (4.30-5.90); White Blood Cell Count 6.49 K/mm3 (4.00-11.30)
[2021-04-05 05:20] LABS: Anion Gap 3 mmol/L (6-16); Blood Urea Nitrogen 17 mg/dL (8-24); Bun/Creatinine Ratio 15.3 (12.0-20.0); CO2, Blood 29 mmol/L (21-32); Calcium, Blood 9.1 mg/dL (8.5-10.1); Chloride, Blood 105 mmol/L (98-108); Creatinine, Blood 1.11 mg/dL (0.60-1.20); Glomerular Filtration Rate >60 (60-); Glucose, Blood 205 mg/dL (70-99); Potassium, Blood 3.6 mmol/L (3.5-5.5); Sodium, Blood 137 mmol/L (136-145)
--- NOTE | 2021-04-05 11:04 | NUR ---
Assisted with dressing change to left foot: amputated great toe and second toe. Dr. Wilder at bedside. Iodaform packing, exudry, rolled gauze, and tape.
--- NOTE | 2021-04-05 19:31 | NUR ---
Shift Summary: Pt alert, oriented, cooperative during shift. Pt's is at bedside at this time - pt refuses SCDs. Pt changed to high sliding scale insulin following high dinner glucose. Medicated with diludid PRN for foot pain. Report given to grant Thomas RN.
[2021-04-05 22:23] LABS: Vancomycin, Trough 11.9 ug/mL (5.0-10.0)
--- NOTE | 2021-04-06 06:43 | NUR ---
PT readmitted with lt le cellulitis improving for Marking of original edema. PT has acute on chronic LT LE pain. Medicated several times with 1 mg dilaudid with very mild helpful effect. PT see's pain management for oxycodone 10 mg po Q6 times day PRN PT took oxycodone 10 mg with 1 mg IV dilaudid with minimal effect.
--- NOTE | 2021-04-06 18:18 | NUR ---
SUMMARY PT SITTING UP IN BED EATING DINNER, IS VISITING, PT HAS BEEN INDEPENDENT IN THE ROOM, MED PER EMAR FOR PAIN, DRESSING TO THE R FOOT HAS BEEN CHANGED, PT CHARISSE WELL, DR GERBER CAME TO SEE THE PT AND PLANS TO TAKE HIM TO THE OR TOMORROW LATE AFTERNOON, PT AWARE, VSS, WILL CONT TO MONITOR
[2021-04-06 22:52] LABS: Vancomycin, Trough 15.6 ug/mL (5.0-10.0)
--- NOTE | 2021-04-07 04:22 | NUR ---
50 year old Male disabled & IDDM continues on 2 IV antibiotics one oral to treat lt foot infection. NPO after BF for surgical plan to clean out infected bone lt foot. Several recent toe amputations lt great & second toe. Tunneling wound lt le with day RN packing wound per DR's instuction. Continues with high narcotic tolerance had pain med liberalized to 2 mg IV dilaudid Q 4 hours for severe lt foot pain. Also has 1 percocet 10/325 Q 4 prn given x 1 with helpful effect. Blood glucose checked at HS for semglee insulin dose 60 units HS resumed after spike in blood glucose level. Will be NPO after breakfast for 4th surgical intervention.
[2021-04-07 14:16] LABS: BASOPHILS ABSOLUTE AUTO 0.05 K/mm3 (0.00-0.23); BASOPHILS PERCENT AUTO 1 % (0-2); EOSINOPHILS ABSOLUTE AUTO 0.41 K/mm3 (0.00-0.68); EOSINOPHILS PERCENT AUTO 7 % (0-6); Hematocrit 35.1 % (37.0-53.0); Hemoglobin 11.4 g/dL (13.5-17.5); IMMATURE GRAN ABSOLUTE AUTO 0.01 K/mm3 (0.00-0.10); IMMATURE GRAN PERCENT AUTO 0 % (0-1); LYMPHOCYTES ABSOLUTE AUTO 1.61 K/mm3 (0.84-5.20); LYMPHOCYTES PERCENT AUTO 29 % (21-46); MONOCYTES ABSOLUTE AUTO 0.35 K/mm3 (0.16-1.47); MONOCYTES PERCENT AUTO 6 % (4-13); Mean Corpuscular HGB 25.5 pg (26.0-34.0); Mean Corpuscular HGB Conc 32.5 g/dL (31.5-36.5); Mean Corpuscular Volume 79 fL (80-100); Mean Platelet Volume 11.1 fL (9.1-12.4); NEUTROPHILS ABSOLUTE AUTO 3.21 K/mm3 (1.96-9.15); NEUTROPHILS PERCENT AUTO 57 % (41-73); Platelet Count 181 K/mm3 (150-400); RDW Coefficient Variation 14.5 % (11.7-14.2); RDW Standard Deviation 40.8 fL (35.1-46.3); Red Blood Cell Count 4.47 M/mm3 (4.30-5.90); White Blood Cell Count 5.64 K/mm3 (4.00-11.30)
[2021-04-07 14:38] LABS: SARS-Cov-2 (COVID-19) PCR, MMC NEGATIVE (NEGATIVE)
--- NOTE | 2021-04-07 16:01 | NUR ---
PT TRANSFERED TO [facility] FROM FLOOR. History, Chart, Medications and Allergies reviewed before start of procedure. Lungs clear T/O to Auscultation. Pre-Op teaching done. Pt verbalizes understanding.
--- NOTE | 2021-04-07 17:19 | NUR ---
04/07/21 1719 Norma Yoder PT ON SCHEDULED ANTIBIOTICS
--- NOTE | 2021-04-07 22:29 | NUR ---
DR STANFORD called & nagi wound culture grew candidia & he stops vanco & oral antibiotic continues cefazolin.
[2021-04-08 04:54] LABS: BASOPHILS ABSOLUTE AUTO 0.03 K/mm3 (0.00-0.23); BASOPHILS PERCENT AUTO 1 % (0-2); EOSINOPHILS ABSOLUTE AUTO 0.31 K/mm3 (0.00-0.68); EOSINOPHILS PERCENT AUTO 5 % (0-6); Hematocrit 35.1 % (37.0-53.0); Hemoglobin 11.3 g/dL (13.5-17.5); IMMATURE GRAN ABSOLUTE AUTO 0.01 K/mm3 (0.00-0.10); IMMATURE GRAN PERCENT AUTO 0 % (0-1); LYMPHOCYTES ABSOLUTE AUTO 1.43 K/mm3 (0.84-5.20); LYMPHOCYTES PERCENT AUTO 24 % (21-46); MONOCYTES ABSOLUTE AUTO 0.34 K/mm3 (0.16-1.47); MONOCYTES PERCENT AUTO 6 % (4-13); Mean Corpuscular HGB 24.8 pg (26.0-34.0); Mean Corpuscular HGB Conc 32.2 g/dL (31.5-36.5); Mean Corpuscular Volume 77 fL (80-100); Mean Platelet Volume 11.4 fL (9.1-12.4); NEUTROPHILS ABSOLUTE AUTO 3.82 K/mm3 (1.96-9.15); NEUTROPHILS PERCENT AUTO 64 % (41-73); Platelet Count 174 K/mm3 (150-400); RDW Coefficient Variation 14.7 % (11.7-14.2); RDW Standard Deviation 40.7 fL (35.1-46.3); Red Blood Cell Count 4.55 M/mm3 (4.30-5.90); White Blood Cell Count 5.94 K/mm3 (4.00-11.30)
[2021-04-08 05:19] LABS: Alanine Aminotransfer (ALT/SGP 10 U/L (12-78); Albumin, Blood 2.8 g/dL (3.4-5.0); Albumin/Globulin Ratio 0.7 (0.8-1.8); Alk Phos 123 U/L (50-136); Anion Gap 5 mmol/L (6-16); Aspartate Aminotrans (AST/SGOT 15 U/L (12-37); Bilirubin, Total 0.2 mg/dL (0.1-1.0); Blood Urea Nitrogen 20 mg/dL (8-24); Bun/Creatinine Ratio 22.1 (12.0-20.0); CO2, Blood 28 mmol/L (21-32); Chloride, Blood 99 mmol/L (98-108); Creatinine, Blood 0.91 mg/dL (0.60-1.20); Globulin, Blood 4.2 g/dL (2.2-4.0); Glomerular Filtration Rate >60 (60-); Glucose, Blood 320 mg/dL (70-99); Potassium, Blood 4.2 mmol/L (3.5-5.5); Sodium, Blood 132 mmol/L (136-145)
[2021-04-08 10:30] LABS: Creatinine, Blood 0.93 mg/dL (0.60-1.20); Vancomycin, Trough 10.1 ug/mL (5.0-10.0)
--- NOTE | 2021-04-08 12:42 | NUR ---
WAS ABOUT TO GIVE HYDRALAZINE FOR HTN. NEW CHECK 153/79 P 66. HELD
--- NOTE | 2021-04-08 12:43 | NUR ---
[address] POP RE BP. WILL PLACE ORDER FOR HYDRAL. PRN. DISCUSSED NEW ORDER FOR METFORMIN START NOW. MOVING S/S TO HIGH TO START FOR LUNCH. CBG 361. GIVE 15 U. ALSO MOVING SIMGLEE TO 70 U. START TONITE.
[2021-04-08 13:26] LABS: BASOPHILS ABSOLUTE AUTO 0.04 K/mm3 (0.00-0.23); BASOPHILS PERCENT AUTO 1 % (0-2); EOSINOPHILS PERCENT AUTO 5 % (0-6); Hematocrit 34.5 % (37.0-53.0); Hemoglobin 11.2 g/dL (13.5-17.5); IMMATURE GRAN ABSOLUTE AUTO 0.01 K/mm3 (0.00-0.10); IMMATURE GRAN PERCENT AUTO 0 % (0-1); LYMPHOCYTES ABSOLUTE AUTO 1.12 K/mm3 (0.84-5.20); LYMPHOCYTES PERCENT AUTO 19 % (21-46); MONOCYTES ABSOLUTE AUTO 0.29 K/mm3 (0.16-1.47); MONOCYTES PERCENT AUTO 5 % (4-13); Mean Corpuscular HGB 25.2 pg (26.0-34.0); Mean Corpuscular HGB Conc 32.5 g/dL (31.5-36.5); Mean Corpuscular Volume 78 fL (80-100); NEUTROPHILS ABSOLUTE AUTO 4.27 K/mm3 (1.96-9.15); NEUTROPHILS PERCENT AUTO 71 % (41-73); Platelet Count 177 K/mm3 (150-400); RDW Coefficient Variation 14.8 % (11.7-14.2); RDW Standard Deviation 41.1 fL (35.1-46.3); Red Blood Cell Count 4.44 M/mm3 (4.30-5.90); White Blood Cell Count 6.03 K/mm3 (4.00-11.30)
--- NOTE | 2021-04-08 15:29 | NUR ---
RELAYED REQUEST FOR CRUTCHES FOR PT FROM DR GERBER TO DOC Ugarte/Armani DOWNEYAERONAUTICAL INSPECTOR.
--- NOTE | 2021-04-08 18:30 | NUR ---
PT PLEASANT TODAY. PAIN REMAINS SAME T/O DAY. TAKES 2 MG DILAUDID TO CONTROL. STATES NOT READY TO GET OFF IV MED. STATES HAS DONE BEFORE AND JUST TAKES IV DILAUDID THEN GOES HOME ON PAIN PILLS. NO LEAKING NOTED ON FOOT., DID AMBULATE SELF TO BATHROOM SEVERAL TIMES TODAY. WITH FWW. NON WT BEARING. DID ADVIST HAND ROUTER OPERATOR FOR LEONID ROACH TODAY OF DR GERBER REQUEST FOR CRUTCHES. DR MOREIRA ADDRESS. NO OTHER CONCERNS NOTED TODAY. BED IN LOW POSITOION, CALL LITE IN REACH, CALLS MARS
--- NOTE | 2021-04-09 06:23 | NUR ---
SHIFT SUMMARY A/O, ABLE TO MAKE NEEDS KNOWN. COOPERATIVE WITH CARE. CALLS AND ANSWERS QUESTIONS APPROPRIATELY. C/O PAIN/DISCOMFORT TO L FOOT/BACK; MEDICATED PER EMAR. STATES CONTINUES TO HAVE DIFFICULT PAIN MANAGEMENT. APPEARED TO REST WELL; STATED FELT LIKE SLEPT BETTER THIS NIGHT VERSUS OTHERS. IV ABX INFUSED; PICC LINE IS A HARD FLUSH. PICC DRSG CHANGED THIS SHIFT. VSS/AFEBRILE. CONSULT CALLED TO DR. ARELLANO /c ID. NO OTHER ACUTE CHANGES NOTED. BED REMAINS IN LOWEST POSITION. CALL LIGHT AND BELONGINGS WITHIN REACH. REPORT TO ONCOMING RN.
[2021-04-09 14:21] LABS: BASOPHILS ABSOLUTE AUTO 0.04 K/mm3 (0.00-0.23); BASOPHILS PERCENT AUTO 1 % (0-2); EOSINOPHILS ABSOLUTE AUTO 0.37 K/mm3 (0.00-0.68); EOSINOPHILS PERCENT AUTO 6 % (0-6); Hematocrit 37.3 % (37.0-53.0); Hemoglobin 11.9 g/dL (13.5-17.5); IMMATURE GRAN ABSOLUTE AUTO 0.01 K/mm3 (0.00-0.10); IMMATURE GRAN PERCENT AUTO 0 % (0-1); LYMPHOCYTES ABSOLUTE AUTO 1.55 K/mm3 (0.84-5.20); LYMPHOCYTES PERCENT AUTO 27 % (21-46); MONOCYTES PERCENT AUTO 5 % (4-13); Mean Corpuscular HGB 25.3 pg (26.0-34.0); Mean Corpuscular HGB Conc 31.9 g/dL (31.5-36.5); Mean Corpuscular Volume 79 fL (80-100); Mean Platelet Volume 10.7 fL (9.1-12.4); NEUTROPHILS PERCENT AUTO 61 % (41-73); Platelet Count 183 K/mm3 (150-400); RDW Coefficient Variation 14.8 % (11.7-14.2); RDW Standard Deviation 42.3 fL (35.1-46.3); Red Blood Cell Count 4.71 M/mm3 (4.30-5.90); White Blood Cell Count 5.77 K/mm3 (4.00-11.30)
--- NOTE | 2021-04-09 16:19 | NUR ---
04/08/21: Per chart review with Dr. Andres, ID consulted and will be evaluating pt. tomorrow. Discharge date/time will be determined after consult. Discussed with pt. and his . Surgeon suggested crutches for pt. to use post discharge. Discussed with pt. and , they have declined at this time. He has a knee scooter that he will use. Pt. has concerned regarding discharge medication Cefazolin IV due to the length of time it takes for delivery. I have advised Dr. Andres of concern. Update 04/09/21: ID consult completed today. Per Dr. Kebede, pt. to resume cefazolin 2 grams Q8 as previously prescribed for 2 weeks post discharge. The is very aware of how to assist pt. in administering. [facility] in [place] would have caused a two day delay in receiving medication. Contacted [facility] in [place]. They are able to mix and send tonight to be delivered by tomorrow. Order faxed to the number provided by [facility] staff . Discussed delivery of cefazolin with pt. and . They were grateful to know that it will not be delayed. Pt. is scheduled for F/U with PCP on 04/14/21 at 4:20PM. [facility] Rajesh Vernon will try to be available at that time for warm hand off. Info regarding appointment as well as discharge letter given to pt. Pt. set to discharge tomorrow. or friend will be picking up depending on time of discharge. No further concern at this time.
--- NOTE | 2021-04-10 06:02 | NUR ---
SHIFT SUMMARY A/O, ABLE TO MAKE NEEDS KNOWN. COOPERATIVE WITH CARE. CALLS AND ANSWERS QUESTIONS APPROPRIATELY. C/O PAIN/DISCOMFORT L FOOT/BACK; MEDICATED PER EMAR. APPEARED TO REST OFF AND ON. NO ACUTE CHANGES NOTED OVERNIGHT. ABX ORDERED. VSS/AFEBRILE. REMAINS HYPERTENSIVE, BUT APPEARS ON TREND WITH PREVIOUS PRESSURES. BED REMAINS IN LOWEST POSITION. CALL LIGHT AND BELONGINGS WITHIN REACH. CONTINUE WITH CURRENT PLAN OF CARE. REPORT TO ONCOMING RN.
[2021-04-10] MEDS ORDERED: Diflucan200 MG PO (15:19)
[2021-04-10] MEDS ORDERED: METF500C PO (15:20)
--- NOTE | 2021-04-10 16:13 | NUR ---
Update 04/10/21: Per Dr. Andres, pt. appropriate for discharge. Scheduled for 04/16/21 at 11:40am with Dr. Silva. Pt. is concerned with having many follow-up visits over the next two weeks. She accepted the appointment but might need to reschedule. JOB team will contact her. Pt. has excellent support at home and denied concerns. Friend will transport her home and pepper picker her prescriptions.
--- NOTE | 2021-04-10 16:43 | NUR ---
DISCHARGE DISCHARGE INSTRUCTIONS AND MEDICATOIN LIST REVIEWED WITH PT. PT CONFIRMED THAT HOME IV ABX HAD BEEN DELIVERED. HE ALSO CONFIRMED THAT HE HAD THE [facility] DISCHARGE/FOLLOW UP SHEET AND WAS AWARE OF HIS FOLLOW UP APPOINTMENTS. QUESTIONS/CONCERNS ANSWERED. PT VERBALLY INDICATED UNDERSTANDING OF ALL INSTRUCTIONS RECEIVED. ESCORTED OUT VIA W/C BY WAX COATING MACHINE TENDER.
--- NOTE | 2021-04-13 23:58 | NUR ---
REVIEWED PT'S INFORMATION FOR CURRENT ADMISSION.
== END 2021-04-10 15:36 | disposition home or self-care (01) | DRG 617 ==
LOC: ER 18:09 → MEDS 18:10 → ENPENDDIS 04-10 13:56 → MEDS 04-10 15:36
PROVIDERS: Internal Medicine; Nurse Practitioner Acute Care; Pharmacist; Physician Assistant; Podiatrist Foot & Ankle Surgery; ADMIT Internal Medicine
PROC: 0JBR0ZZ Excision of Left Foot Subcutaneous Tissue and Fascia, Open Approach (ICD-10-PCS; 2021-04-07)
PROC: 0Y6N0Z9 Detachment at Left Foot, Partial 1st Ray, Open Approach (ICD-10-PCS; principal; 2021-04-07 08:45)
DX: E11.69 Type 2 diabetes mellitus with other specified complication (principal); M86.172 Other acute osteomyelitis, left ankle and foot; L03.115 Cellulitis of right lower limb; L97.429 Non-pressure chronic ulcer of left heel and midfoot with unspecified severity; B37.89 Other sites of candidiasis; N18.30 Chronic kidney disease, stage 3 unspecified; I12.9 Hypertensive chronic kidney disease with stage 1 through stage 4 chronic kidney disease, or unspecified chronic kidney disease; E78.5 Hyperlipidemia, unspecified; Z68.34 Body mass index [BMI] 34.0-34.9, adult; E11.22 Type 2 diabetes mellitus with diabetic chronic kidney disease; I25.10 Atherosclerotic heart disease of native coronary artery without angina pectoris; F32.9 Major depressive disorder, single episode, unspecified; G89.29 Other chronic pain; Z98.890 Other specified postprocedural states; Z88.8 Allergy status to other drugs, medicaments and biological substances; E11.42 Type 2 diabetes mellitus with diabetic polyneuropathy; E11.65 Type 2 diabetes mellitus with hyperglycemia; E66.9 Obesity, unspecified; I25.2 Old myocardial infarction; E78.00 Pure hypercholesterolemia, unspecified; E11.621 Type 2 diabetes mellitus with foot ulcer
CPT/HCPCS: 36415; 73620; 80048; 80053; 80202; 82565; 82947; 83605; 84145; 85025; 85027; 85651; 86140; 87040; 87070; 87075; 87205; 88305; 88311; 96365; 96366; 96367; 96375; 96376; 99284-25; A9270; C9113; G0378; J0690; J1170; J1450; J2001; J2250; J2405; J2704; J3010; J3370; J7030; J7050; J7120; U0004

== ENCOUNTER 2021-04-13 19:10 | Observation (INO) | payer MEDICARE, OTHER ==
[~2021-04-13] VITALS: Ht 198.1 cm; Wt 133.5 kg
[~2021-04-13 19:10] MED LIST changes: +Diflucan200 MG PO; +METF500C PO
[2021-04-13 21:02] LABS: BASOPHILS ABSOLUTE AUTO 0.05 K/mm3 (0.00-0.23); BASOPHILS PERCENT AUTO 1 % (0-2); EOSINOPHILS ABSOLUTE AUTO 0.51 K/mm3 (0.00-0.68); EOSINOPHILS PERCENT AUTO 8 % (0-6); Hematocrit 38.5 % (37.0-53.0); Hemoglobin 12.6 g/dL (13.5-17.5); IMMATURE GRAN ABSOLUTE AUTO 0.01 K/mm3 (0.00-0.10); IMMATURE GRAN PERCENT AUTO 0 % (0-1); LYMPHOCYTES ABSOLUTE AUTO 1.91 K/mm3 (0.84-5.20); LYMPHOCYTES PERCENT AUTO 30 % (21-46); MONOCYTES ABSOLUTE AUTO 0.38 K/mm3 (0.16-1.47); MONOCYTES PERCENT AUTO 6 % (4-13); Mean Corpuscular HGB 25.7 pg (26.0-34.0); Mean Corpuscular HGB Conc 32.7 g/dL (31.5-36.5); Mean Corpuscular Volume 78 fL (80-100); Mean Platelet Volume 11.7 fL (9.1-12.4); NEUTROPHILS ABSOLUTE AUTO 3.49 K/mm3 (1.96-9.15); NEUTROPHILS PERCENT AUTO 55 % (41-73); Platelet Count 201 K/mm3 (150-400); RDW Standard Deviation 42.7 fL (35.1-46.3); Red Blood Cell Count 4.91 M/mm3 (4.30-5.90); White Blood Cell Count 6.35 K/mm3 (4.00-11.30)
[2021-04-13 21:16] LABS: Alanine Aminotransfer (ALT/SGP 14 U/L (12-78); Albumin, Blood 3.1 g/dL (3.4-5.0); Albumin/Globulin Ratio 0.7 (0.8-1.8); Alk Phos 131 U/L (50-136); Anion Gap 5 mmol/L (6-16); Aspartate Aminotrans (AST/SGOT 26 U/L (12-37); Bilirubin, Total 0.2 mg/dL (0.1-1.0); Blood Urea Nitrogen 19 mg/dL (8-24); Bun/Creatinine Ratio 15.7 (12.0-20.0); CO2, Blood 29 mmol/L (21-32); Calcium, Blood 8.9 mg/dL (8.5-10.1); Chloride, Blood 99 mmol/L (98-108); Creatinine, Blood 1.21 mg/dL (0.60-1.20); Globulin, Blood 4.4 g/dL (2.2-4.0); Glomerular Filtration Rate >60 (60-); Glucose, Blood 388 mg/dL (70-99); Potassium, Blood 4.1 mmol/L (3.5-5.5); Sodium, Blood 133 mmol/L (136-145); Total Protein, Blood 7.5 g/dL (6.4-8.2)
[2021-04-13] MEDS ORDERED: METF500C PO (22:09)
[2021-04-13 22:51] LABS: Troponin I <0.015 ng/mL (0.000-0.040)
[2021-04-14] MEDS ORDERED: VISBIOME 112.51 EACH PO (00:09)
[2021-04-14 05:34] LABS: BASOPHILS ABSOLUTE AUTO 0.06 K/mm3 (0.00-0.23); BASOPHILS PERCENT AUTO 1 % (0-2); EOSINOPHILS ABSOLUTE AUTO 0.58 K/mm3 (0.00-0.68); EOSINOPHILS PERCENT AUTO 8 % (0-6); Hematocrit 38.8 % (37.0-53.0); Hemoglobin 12.5 g/dL (13.5-17.5); IMMATURE GRAN ABSOLUTE AUTO 0.02 K/mm3 (0.00-0.10); IMMATURE GRAN PERCENT AUTO 0 % (0-1); LYMPHOCYTES ABSOLUTE AUTO 2.65 K/mm3 (0.84-5.20); LYMPHOCYTES PERCENT AUTO 38 % (21-46); MONOCYTES ABSOLUTE AUTO 0.42 K/mm3 (0.16-1.47); MONOCYTES PERCENT AUTO 6 % (4-13); Mean Corpuscular HGB 25.2 pg (26.0-34.0); Mean Corpuscular HGB Conc 32.2 g/dL (31.5-36.5); Mean Corpuscular Volume 78 fL (80-100); Mean Platelet Volume 11.1 fL (9.1-12.4); NEUTROPHILS ABSOLUTE AUTO 3.18 K/mm3 (1.96-9.15); NEUTROPHILS PERCENT AUTO 46 % (41-73); Platelet Count 187 K/mm3 (150-400); RDW Coefficient Variation 14.8 % (11.7-14.2); RDW Standard Deviation 42.3 fL (35.1-46.3); Red Blood Cell Count 4.96 M/mm3 (4.30-5.90); White Blood Cell Count 6.91 K/mm3 (4.00-11.30)
[2021-04-14 05:52] LABS: Anion Gap 5 mmol/L (6-16); Blood Urea Nitrogen 18 mg/dL (8-24); Bun/Creatinine Ratio 16.8 (12.0-20.0); CO2, Blood 28 mmol/L (21-32); Calcium, Blood 8.9 mg/dL (8.5-10.1); Chloride, Blood 101 mmol/L (98-108); Creatinine, Blood 1.07 mg/dL (0.60-1.20); Glomerular Filtration Rate >60 (60-); Glucose, Blood 259 mg/dL (70-99); Potassium, Blood 3.6 mmol/L (3.5-5.5); Sodium, Blood 134 mmol/L (136-145)
--- NOTE | 2021-04-14 06:52 | NUR ---
SHIFT SUMMARY ADMITTED LAST NIGHT FOR DVT IN [facility] WHERE PICC LINE WAS LOCATED. AOX4. VSS. PT REPORTED HAVING SOB c EXERTION OR LYING DOWN, NONE DURING ASSESSMENT THOUGH. 06/02 BILAT UPPER CHEST PINCHING PAIN, SHOOTING STABBING BLE PAIN & R SHOULDER, ARM PAIN. MEDICATED 2X c 2MG IV DILAUDID & 1X c SCHEDULED OXYCODONE, STATES SOME RELIEF FROM PAIN. RUE ARM WAS RED, WARM, SWOLLEN, TENDER TO TOUCH. PICC LINE WAS REMOVED BY CHARGE NURSE LUAN Castillo @0030. PT HAD TOE AMPUTATIONS ON LLE ROUGHLY 5 DAYS PREVIOUS & WAS SUPPOSE TO HAVE DR LIZAMA CHANGE DRESSING 04/14/21 HOWEVER PT IS CURRENTLY ADMITTED. ASKED HOSPITALIST FOR CONSULT & NO NEW ORDERS GIVEN, WILL PASS TO ONCOMING NURSE. CALL LIGHT IN REACH.
[2021-04-14] MEDS ORDERED: XARELTO15 MG PO (13:11)
[2021-04-14] MEDS ORDERED: XARELTO20 MG PO (13:13)
--- NOTE | 2021-04-14 13:58 | NUR ---
DISCHARGE SUMMARY PT LEFT BY WC TO HIS SON WHO IS GIVING HIM A RIDE TO HIS [employer] KILN OPERATOR DR HAMILTON. DRESSING ON FOOT C/D/I, PER DR ARCE, WE SHOULDN'T UNWRAP/CLEAN/REDRESS DR HAMILTON HAD NOT WANTED US TO TOUCH IT UNTIL HIS APPT THIS AFTERNOON. GOT IV DILAUDID AND PO OXY FOR PAIN IN RUE AND LLE. PIV REMOVED, MEDS FAXED TO [facility]. PAPERWORK REVIEWED. [facility] WILL CALL HIM TO [facility] Zambrano F/U.
== END 2021-04-14 13:44 | disposition home or self-care (01) ==
LOC: ER 19:10 → MEDS 23:06
PROVIDERS: Nurse Practitioner Acute Care; Physician Assistant; ADMIT Internal Medicine
DX: I82.621 Acute embolism and thrombosis of deep veins of right upper extremity (principal); E11.69 Type 2 diabetes mellitus with other specified complication; M86.9 Osteomyelitis, unspecified; B95.61 Methicillin susceptible Staphylococcus aureus infection as the cause of diseases classified elsewhere; B37.89 Other sites of candidiasis; E11.621 Type 2 diabetes mellitus with foot ulcer; L97.522 Non-pressure chronic ulcer of other part of left foot with fat layer exposed; R07.9 Chest pain, unspecified; I25.2 Old myocardial infarction; E78.00 Pure hypercholesterolemia, unspecified; I25.10 Atherosclerotic heart disease of native coronary artery without angina pectoris; G47.33 Obstructive sleep apnea (adult) (pediatric); G89.4 Chronic pain syndrome; E11.40 Type 2 diabetes mellitus with diabetic neuropathy, unspecified; E11.22 Type 2 diabetes mellitus with diabetic chronic kidney disease; I12.9 Hypertensive chronic kidney disease with stage 1 through stage 4 chronic kidney disease, or unspecified chronic kidney disease; N18.30 Chronic kidney disease, stage 3 unspecified; Z89.422 Acquired absence of other left toe(s); Z79.82 Long term (current) use of aspirin; Z79.4 Long term (current) use of insulin; Z95.9 Presence of cardiac and vascular implant and graft, unspecified; Z79.891 Long term (current) use of opiate analgesic; Z88.8 Allergy status to other drugs, medicaments and biological substances
CPT/HCPCS: 36415; 80048; 80053; 82947; 83880; 84484; 85025; 93005; 93010; 93971; 94762; 96372; 96375; 96376; 99284-25; A9270; C9113; G0378; J0690; J1170; J1450; J1650; J7050

== ENCOUNTER 2021-04-17 16:41 | Emergency (ER) | payer MEDICARE, OTHER ==
[~2021-04-17] VITALS: Ht 198.1 cm; Wt 131.5 kg
[~2021-04-17 16:41] MED LIST changes: +XARELTO15 MG PO; +XARELTO20 MG PO
[2021-04-17 18:04] LABS: BASOPHILS ABSOLUTE AUTO 0.07 K/mm3 (0.00-0.23); BASOPHILS PERCENT AUTO 1 % (0-2); EOSINOPHILS PERCENT AUTO 6 % (0-6); Hematocrit 40.4 % (37.0-53.0); Hemoglobin 13.1 g/dL (13.5-17.5); IMMATURE GRAN ABSOLUTE AUTO 0.02 K/mm3 (0.00-0.10); IMMATURE GRAN PERCENT AUTO 0 % (0-1); LYMPHOCYTES ABSOLUTE AUTO 2.29 K/mm3 (0.84-5.20); LYMPHOCYTES PERCENT AUTO 29 % (21-46); MONOCYTES ABSOLUTE AUTO 0.46 K/mm3 (0.16-1.47); MONOCYTES PERCENT AUTO 6 % (4-13); Mean Corpuscular HGB 25.2 pg (26.0-34.0); Mean Corpuscular HGB Conc 32.4 g/dL (31.5-36.5); Mean Corpuscular Volume 78 fL (80-100); Mean Platelet Volume 11.6 fL (9.1-12.4); NEUTROPHILS ABSOLUTE AUTO 4.45 K/mm3 (1.96-9.15); NEUTROPHILS PERCENT AUTO 57 % (41-73); Platelet Count 207 K/mm3 (150-400); RDW Coefficient Variation 14.8 % (11.7-14.2); RDW Standard Deviation 41.1 fL (35.1-46.3); Red Blood Cell Count 5.19 M/mm3 (4.30-5.90); White Blood Cell Count 7.79 K/mm3 (4.00-11.30)
[2021-04-17 18:18] LABS: International Normalized Ratio 1.08; Prothrombin Time Results 11.6 Sec (9.7-11.5)
[2021-04-17 18:29] LABS: Alanine Aminotransfer (ALT/SGP 17 U/L (12-78); Albumin, Blood 3.1 g/dL (3.4-5.0); Albumin/Globulin Ratio 0.7 (0.8-1.8); Alk Phos 127 U/L (50-136); Anion Gap 8 mmol/L (6-16); Aspartate Aminotrans (AST/SGOT 33 U/L (12-37); Bilirubin, Total 0.3 mg/dL (0.1-1.0); Blood Urea Nitrogen 16 mg/dL (8-24); Bun/Creatinine Ratio 12.5 (12.0-20.0); CO2, Blood 28 mmol/L (21-32); Calcium, Blood 9.6 mg/dL (8.5-10.1); Chloride, Blood 103 mmol/L (98-108); Creatinine, Blood 1.28 mg/dL (0.60-1.20); Globulin, Blood 4.5 g/dL (2.2-4.0); Glomerular Filtration Rate >60 (60-); Glucose, Blood 159 mg/dL (70-99); Sodium, Blood 139 mmol/L (136-145); Total Protein, Blood 7.6 g/dL (6.4-8.2); Troponin I <0.015 ng/mL (0.000-0.040)
== END 2021-04-17 19:20 | disposition home or self-care (01) ==
LOC: ER 16:41
PROVIDERS: Physician Assistant
DX: I82.B11 Acute embolism and thrombosis of right subclavian vein (principal); E11.9 Type 2 diabetes mellitus without complications; I25.2 Old myocardial infarction; E78.00 Pure hypercholesterolemia, unspecified; Z88.8 Allergy status to other drugs, medicaments and biological substances; Z79.01 Long term (current) use of anticoagulants; Z79.899 Other long term (current) drug therapy
CPT/HCPCS: 36415; 71260; 80053; 84484; 85025; 85610; 93005; 93010; 99284-25; Q9966